=== PATIENT | female | born 1950 | race Caucasian/White ===

== ENCOUNTER 2020-11-19 09:53 | Outpatient (REF) | payer MEDICARE, OTHER, SELFPAY ==
--- NOTE | ~2020-11-19 | US_ITS ---
EXAMINATION: US RETROPERITONEAL LIMITED (RENAL ONLY) CLINICAL INFORMATION: Nephrolithiasis. COMPARISON: None TECHNIQUE: Real-time imaging of the kidneys. FINDINGS: RIGHT KIDNEY: 11.1 x 4.1 x 5.2 cm (SAG x AP x TRV). The kidney is normal in size, contour, and echogenicity. Renal cortical thickness is normal. There are scattered echogenic foci questionable for tiny stones. No focal parenchymal lesions. No hydronephrosis. LEFT KIDNEY: 11.6 x 5.2 x 5.1 cm (SAG x AP x TRV). The kidney is normal in size, contour, and echogenicity. Renal cortical thickness is normal. There are scattered echogenic foci questionable for tiny stones. Largest measures 3 mm in the midpole. No focal parenchymal lesions or hydronephrosis. US/US renal BI IMPRESSION: Question small bilateral renal stones, largest measuring 3 mm in the left kidney.
== END 2020-11-19 09:54 | disposition home or self-care (01) ==
LOC: HO.US 09:53
PROVIDERS: Visit Provider Urology
DX: N20.0 Calculus of kidney (principal)
CPT/HCPCS: 76775

== ENCOUNTER → 2020-12-18 11:14 | Outpatient (BNVA) | payer MEDICARE, OTHER, SELFPAY | PROVIDERS: PCP Pediatrics | DX: Z87.442 Personal history of urinary calculi (principal); Z98.890 Other specified postprocedural states | CPT/HCPCS: Q3014 ==

== ENCOUNTER 2022-02-10 15:10 | Outpatient (REF) | payer MEDICARE, SELFPAY ==
--- NOTE | ~2022-02-10 | US_ITS ---
EXAMINATION: US RETROPERITONEAL LIMITED (RENAL ONLY) CLINICAL INFORMATION: Calculus of kidney. COMPARISON: Ultrasound retroperitoneal limited (renal only) 11/19/2020. TECHNIQUE: Real-time imaging of the kidneys. FINDINGS: RIGHT KIDNEY: 10.8 x 4.3 x 4.2 cm (SAG x AP x TRV). The kidney is normal in size, contour, and echogenicity. Renal cortical thickness is normal. No hydronephrosis. There is a 1 cm simple cyst in the lateral lower pole for which no imaging follow-up is recommended. There are at least 2 sub-2 mm calculi in the lower and mid pole. LEFT KIDNEY: 11.6 x 4.8 x 4.2 cm (SAG x AP x TRV). The kidney is normal in size, contour, and echogenicity. Renal cortical thickness is normal. No calculi or focal parenchymal lesions. No hydronephrosis. US/US renal BI IMPRESSION: Nonobstructive right-sided renal calculi.
== END 2022-02-10 15:11 | disposition home or self-care (01) ==
LOC: HO.US 15:10
PROVIDERS: PCP Pediatrics
DX: N20.0 Calculus of kidney (principal)
CPT/HCPCS: 76775

== ENCOUNTER 2022-04-05 11:53 | Outpatient (REF) | payer MEDICARE, SELFPAY ==
[2022-04-05 13:06] LABS: Appearance Urine Cloudy; Color Urine Yellow; Glucose Urine UA Negative (Negative); Leukocyte Esterase Urine Trace (Negative); Nitrite Urine Negative (Negative); PH 6.5 (5.0-9.0); Specific Gravity - Urine 1.015 (1.005-1.025); UMIC TRIGGER UA YES; Urine Blood Negative (Negative); Urine Ketones Negative (Negative); Urine Protein Negative (Neg-Trace)
[2022-04-05 13:11] LABS: Bacteria Urine 4+ (None Seen); Hyaline Casts Urine 0-2 /LPF (0-2); RBC Urine 0-2 /HPF (0-2); Squamous Epithelial Cell Urine 0-2 /HPF (0-2)
== END 2022-04-05 11:54 | disposition home or self-care (01) ==
LOC: HO.LAB 11:53
PROVIDERS: PCP Pediatrics; Visit Provider Urology
DX: N20.0 Calculus of kidney (principal)
CPT/HCPCS: 81001; 87086; 87088; 87186

== ENCOUNTER 2023-02-22 11:28 | Outpatient (REF) | payer MEDICARE, SELFPAY ==
--- NOTE | ~2023-02-22 | US_ITS ---
EXAMINATION: US RETROPERITONEAL LIMITED (RENAL ONLY) CLINICAL INFORMATION: Calculus of kidney. COMPARISON: Renal ultrasound 02/10/2022 and 11/19/2020. TECHNIQUE: Real-time imaging of the kidneys. FINDINGS: RIGHT KIDNEY: 11.6 x 4.7 x 4.0 cm (SAG x AP x TRV). The kidney is normal in size, contour, and echogenicity. Renal cortical thickness is normal. No hydronephrosis. Benign-appearing renal cyst measuring 1 cm. No follow up imaging is recommended. 3 mm nonobstructing lower pole renal stone, previously 2 mm. LEFT KIDNEY: 10.8 x 4.5 x 4.1 cm (SAG x AP x TRV). The kidney is normal in size and echogenicity. Renal cortical thickness is normal. No calculi or focal parenchymal lesions. No hydronephrosis. US/US renal BI IMPRESSION: 3 mm nonobstructing right lower pole renal stone, previously 2 mm. No hydronephrosis.
== END 2023-02-22 11:29 | disposition home or self-care (01) ==
LOC: HO.US 11:28
PROVIDERS: PCP Pediatrics; Visit Provider Urology
DX: N20.0 Calculus of kidney (principal)
CPT/HCPCS: 76775

== ENCOUNTER 2023-03-06 12:48 | Outpatient (AMB) | payer MEDICARE, SELFPAY ==
--- NOTE | 2023-03-06 12:51 | A.OFFVIS_ITS ---
Intake Intake Visit Reasons: follow up (stones) /US Intake Note: Patient presents today for a follow-up on US Results, US Completed on 02/22/2023: Meds- None Allergies to Antibiotic- No Known Allergies Blood Thinner- None Signals Intelligence Superintendent Required: No Accompanied by: Self / Same As Patient Allergies No Known Allergies Allergy (Verified 03/06/23 12:58) Medication List - Last Reconciled 03/06/23 by Letty London MD multivitamin 1 tab PO DAILY omeprazole 20 mg PO DAILY timolol maleate 0.5% 1 drp ophthalmic (eye) QAM HPI HPI Comments History of Present Illness Details Ginger is a 72-year-old female who presents today to the office for a follow-up. 03/06/2023? She is followed today for renal calculi. She has seen Lisa CROSS Greaney last on 12/18/2020 for kidney stones. Patient states that she had multiple procedures for kidney stone treatment including shock-wave lithotripsy, and she states that last procedure was PCNL, and she was told they removed about 9 kidney stones at this time. Since then, she is doing well. I reviewed the renal US resultsrfrom 02/22/2023 revealed 3 mm nonobstructing right lower pole renal stone, previously 2 mm. No hydronephrosis. Evaluation today?UA? leukocytes: negative; blood: negative. Discussed to reduce sodium intake. Discussed to consume adequate amount of water. Discussed Low oxalate diet---green leafy vegetable, nuts, and tea in moderation as they are rich in oxalate. Plan: Discussed diet modifications to decrease risk for kidney stones formation, diet sheet provided. Encouraged to call the Urology office sooner with any questions or concerns. Follow-up in one year with renal US. [facility] Medical History Renal calculi Surgical History History of surgery Hx of hysterectomy Family History Father No problems noted. Mother No problems noted. Social History Alcohol intake: current Alcohol intake frequency: holidays/special occasions only Patient Tobacco Use Status: Never used Tobacco Review of Systems Const All systems reviewed & are unremarkable except as noted in HPI and below Reports no additional complaints Eyes Reports no additional complaints ENT Reports no additional complaints Card Denies dyspnea Resp Denies cough and Denies dyspnea GI Reports no additional complaints Reports no additional complaints Musc Reports no additional complaints Skin/Breast Denies rash and Denies unusual bruising Neuro Reports no additional complaints Psych Reports no additional complaints Endo Reports no additional complaints González/Lymph Reports no additional complaints Aller/Immun Reports no additional complaints Results AMB Urinalysis, Automated UA Leukoctes 0 Shama/uL Last Edit by JESSICA Bowling on 03/06/23 13:02 UA Nitrite Negative Last Edit by JESSICA Bowling on 03/06/23 13:02 UA Urobilinogen 0.2 mg/dL Last Edit by JESSICA Bowling on 03/06/23 13:0 2 UA Protein 0 mg/dL Last Edit by JESSICA Bowling on 03/06/23 13:02 UA pH 6.0 Last Edit by JESSICA Bowling on 03/06/23 13:02 UA Blood 0 Gino/uL Last Edit by JESSICA Bowling on 03/06/23 13:02 UA Specific [place] 1.005 Last Edit by JESSICA Bowling on 03/06/23 13: 02 UA Ketone Negative Last Edit by JESSICA Bowling on 03/06/23 13:02 UA Bilirubin 0 mg/dL Last Edit by JESSICA Bowling on 03/06/23 13:02 UA Glucose 0 mg/dL Last Edit by JESSICA Bowling on 03/06/23 13:02 Results Reviewed Results Reviewed: Laboratory Last Values Urine pH (Auto) 6.0 03/06/23 13:00 Specific [place] (Auto) 1.005 03/06/23 13:00 Urine Protein (Auto) 0 mg/dL 03/06/23 13:00 Glucose (UA)(Auto) 0 mg/dL 03/06/23 13:00 Urine Ketones (Auto) Negative 03/06/23 13:00 Urine Blood (Auto) 0 Gino/uL 03/06/23 13:00 Urine Nitrite (Auto) Negative 03/06/23 13:00 Urine Bilirubin (Auto) 0 mg/dL 03/06/23 13:00 Urine Urobilinogen (Auto) 0.2 mg/dL 03/06/23 13:00 Leukocyte Esterase (Auto) 0 Shama/uL 03/06/23 13:00 Date of Service: 02/22/23 EXAMINATION:? US RETROPERITONEAL LIMITED (RENAL ONLY) CLINICAL INFORMATION: Calculus of kidney. COMPARISON:? Renal ultrasound 02/10/2022 and 11/19/2020. FINDINGS: RIGHT KIDNEY: 11.6 x 4.7 x 4.0 cm (SAG x AP x TRV). The kidney is normal in size, contour, and echogenicity. Renal cortical thickness is normal. No hydronephrosis. Benign-appearing renal cyst measuring 1 cm. No follow up imaging is recommended. 3 mm nonobstructing lower pole renal stone, previously 2 mm. LEFT KIDNEY: 10.8 x 4.5 x 4.1 cm (SAG x AP x TRV). The kidney is normal in size and echogenicity. Renal cortical thickness is normal. No calculi or focal parenchymal lesions. No hydronephrosis. IMPRESSION:? 3 mm nonobstructing right lower pole renal stone, previously 2 mm. No hydronephrosis. Assessment & Plan Assessment & Plan (1) Renal calculi: Code(s): N20.0 - Calculus of kidney Plan Discussed diet modifications to decrease risk for kidney stones formation, diet sheet provided. Encouraged to call the Urology office sooner with any questions or concerns. Follow-up in one year with renal US. Orders: Orders AMB Urinalysis Automated 03/06/23 Z13.9 - Encounter for screening, unspecified US renal BI 10 Months N20.0 - Calculus of kidney Patient Instructions: The patient had an opportunity to ask questions regarding treatment plan. All questions were answered. Imaging, Laboratory studies and physical exam results were discussed and reviewed in detail. No major barriers to understanding were identified. The patient expressed understanding and agreement with the above treatment plan.? ? ? The patient is aware they should contact our office by phone for worsening of their current condition or the appearance of new symptoms. Compliance is encouraged with any medications and followup testing that is ordered.? ? ? It is a privilege to be allowed the opportunity to participate in the urologic care of your patient. If you have any questions or concerns regarding treatment for the above conditions please do not hesitate to contact me. The office telephone contact is [phone].? ? ? This note is constructed in part using voice recognition software. While every effort has been made to ensure accuracy dedicated truck driver errors may have been included.? ? ? Yours sincerely,? ? ? Letty London MD? Coding Level of Care Code Est Pt Level 3 (00495) Diagnoses Renal calculi N20.0
== END 2023-03-06 13:26 | disposition home or self-care (01) ==
PROVIDERS: PCP Pediatrics; Visit Provider Urology
DX: N20.0 Calculus of kidney (principal)
CPT/HCPCS: 99213

== ENCOUNTER → 2023-03-06 12:48 | Outpatient (BNVA) | payer MEDICARE, SELFPAY | PROVIDERS: Visit Provider Urology | DX: N20.0 Calculus of kidney (principal) | CPT/HCPCS: 81003; 99212 ==

== ENCOUNTER 2024-01-01 11:19 | Outpatient (REF) | payer MEDICARE, SELFPAY ==
--- NOTE | ~2024-01-01 | US_ITS ---
EXAMINATION: US RETROPERITONEAL LIMITED (RENAL ONLY) CLINICAL INFORMATION: Calculus of kidney. COMPARISON: Renal ultrasound 02/22/2023 and 02/10/2022. TECHNIQUE: Real-time imaging of the kidneys. Limited visualization due to bowel gas. FINDINGS: RIGHT KIDNEY: 11.0 x 4.1 x 4.8 cm (SAG x AP x TRV). 0.4 cm lower pole cortical calculus. No hydronephrosis. Lobulated right renal contour. 1.2 cm lower pole cyst with benign features. There is no indication for follow-up imaging. Limited visualization. LEFT KIDNEY: 11.1 x 4.7 x 4.3 cm (SAG x AP x TRV). Left renal caliectasis. No obstructing left renal calculi. Lobulated renal contour. Limited visualization. US/US renal BI IMPRESSION: 1. A 0.4 cm right renal lower pole nonobstructing calculus. No right hydronephrosis. 2. Left renal caliectasis. No left renal calculi appreciated. 3. Lobulated bilateral renal contours difficult to evaluate due to limited visualization.
== END 2024-01-01 11:20 | disposition home or self-care (01) ==
LOC: HO.US 11:19
PROVIDERS: PCP Pediatrics; Visit Provider Urology
DX: N20.0 Calculus of kidney (principal)
CPT/HCPCS: 76775

== ENCOUNTER 2024-04-11 11:31 | Outpatient (AMB) | payer MEDICARE, SELFPAY ==
--- NOTE | 2024-04-10 19:06 | A.OFFVIS_ITS ---
Intake Visit Reasons: 1y/US Intake Note: Patient is present for 1y/US Urology Medication:NONE Antibiotic Allergy:SULFA Blood Thinner:NONE Manager Loss Prevention Required: No Allergies Sulfa (Sulfonamide Antibiotics) Allergy (Mild, Verified 04/11/24 12:22) Unknown Medication List - Last Reconciled 04/11/24 by Letty London MD multivitamin 1 tab PO DAILY nitrofurantoin monohyd/m-cryst 100 mg (Macrobid) 100 mg PO BID omeprazole 20 mg PO DAILY timolol maleate 0.5% 1 drp ophthalmic (eye) QAM HPI Comments Details: 04/11/24--one year fu kidney stones. Reviewed fu renal US --01/01/24- right kidney stone is stable, 4 mm, was measured at 3 mm on prior renal ultrasound. The patient states she is asymptomatic, denies hematuria or renal colic. She does complain that the urine has a strong odor in his called in she thinks she has a UTI. Urinalysis-in +leukocytes. I will send urine for culture and will empirically prescribed Macrobid 100 mg twice a day for 5 days. Review of Chart: 03/06/2023?She is followed today for renal calculi. She has seen UTILITIES AND MAINTENANCE SUPERVISORLisa Greaney last on 12/18/2020 for kidney stones. Patient states that she had multiple procedures for kidney stone treatment including shock-wave lithotripsy, and she states that last procedure was PCNL, and she was told they removed about 9 kidney stones at this time. Since then, she is doing well. I reviewed the renal US resultsrfrom 02/22/2023 revealed 3 mm nonobstructing right lower pole renal stone, previously 2 mm. No hydronephrosis. Discussed to reduce sodium intake. Discussed to consume adequate amount of water. Discussed Low oxalate diet---green leafy vegetable, nuts, and tea in moderation as they are rich in oxalate. [facility] Medical History Renal calculi Surgical History History of surgery Hx of hysterectomy Family History Father No problems noted. Mother No problems noted. Social History Alcohol intake: current Alcohol intake frequency: holidays/special occasions only Patient Tobacco Use Status: Never used Tobacco Review of Systems Const All systems reviewed & are unremarkable except as noted in HPI and below Reports no additional complaints Eyes Reports no additional complaints ENT Reports no additional complaints Card Reports no additional complaints Resp Reports no additional complaints GI Reports no additional complaints Reports as per HPI Musc Reports no additional complaints Skin/Breast Reports system reviewed and no additional complaints, except as documented Neuro Reports no additional complaints Psych Reports no additional complaints Endo Reports no additional complaints González/Lymph Reports no additional complaints Aller/Immun Reports no additional complaints Results Reviewed Results Reviewed: Date of Service: 01/01/24 US RETROPERITONEAL LIMITED (RENAL ONLY) CLINICAL INFORMATION: Calculus of kidney. COMPARISON: Renal ultrasound 02/22/2023 and 02/10/2022. TECHNIQUE: Real-time imaging of the kidneys. Limited visualization due to bowel gas. FINDINGS: RIGHT KIDNEY: 11.0 x 4.1 x 4.8 cm (SAG x AP x TRV). 0.4 cm lower pole cortical calculus. No hydronephrosis. Lobulated right renal contour. 1.2 cm lower pole cyst with benign features. There is no indication for follow-up imaging. Limited visualization. LEFT KIDNEY: 11.1 x 4.7 x 4.3 cm (SAG x AP x TRV). Left renal caliectasis. No obstructing left renal calculi. Lobulated renal contour. Limited visualization. IMPRESSION: 1. A 0.4 cm right renal lower pole nonobstructing calculus. No right hydronephrosis. 2. Left renal caliectasis. No left renal calculi appreciated. 3. Lobulated bilateral renal contours difficult to evaluate due to limited visualization. Date of Service: 02/22/23 EXAMINATION:? US RETROPERITONEAL LIMITED (RENAL ONLY) CLINICAL INFORMATION: Calculus of kidney. COMPARISON:? Renal ultrasound 02/10/2022 and 11/19/2020. FINDINGS: RIGHT KIDNEY: 11.6 x 4.7 x 4.0 cm (SAG x AP x TRV). The kidney is normal in size, contour, and echogenicity. Renal cortical thickness is normal. No hydronephrosis. Benign-appearing renal cyst measuring 1 cm. No follow up imaging is recommended. 3 mm nonobstructing lower pole renal stone, previously 2 mm. LEFT KIDNEY: 10.8 x 4.5 x 4.1 cm (SAG x AP x TRV). The kidney is normal in size and echogenicity. Renal cortical thickness is normal. No calculi or focal parenchymal lesions. No hydronephrosis. IMPRESSION:? 3 mm nonobstructing right lower pole renal stone, previously 2 mm. No hydronephrosis. Assessment & Plan Assessment & Plan (1) Renal calculi: Code(s): N20.0 - Calculus of kidney Category: Medical (2) UTI symptoms: Code(s): R39.9 - Unspecified symptoms and signs involving the genitourinary system Category: Medical Plan Discussed diet modifications to decrease risk for kidney stones formation, diet sheet provided. Follow-up in one year with renal US. Macrobid 100 mg twice a day for 5 days urine culture pending. Encouraged to call the Urology office sooner with any questions or concerns. Orders: Orders US renal BI 10 Months N20.0 - Calculus of kidney Medications: New nitrofurantoin monohyd/m-cryst 100 mg (Macrobid) must administer with a meal/food 100 mg PO BID 10 caps 0RF Patient Instructions: The patient had an opportunity to ask questions regarding treatment plan. The patient expressed understanding and agreement with the above treatment plan. The patient is aware they should contact our office by phone for worsening of their current condition or the appearance of new symptoms. Compliance is encouraged with any medications and followup testing that is ordered. It is a privilege to be allowed the opportunity to participate in the urologic care of your patient. If you have any questions or concerns regarding treatment for the above conditions please do not hesitate to contact me. The office telephone contact is [phone]. This note is constructed in part using voice recognition software. While every effort has been made to ensure accuracy hobbing press operator errors may have been included. Yours sincerely, Letty London MD Coding Level of Care Code Est Pt Level 4 (72551) Diagnoses Renal calculi N20.0 UTI symptoms R39.9
== END 2024-04-11 12:33 | disposition home or self-care (01) ==
LOC: HO.HUSH 11:32
PROVIDERS: PCP Pediatrics; Visit Provider Urology
DX: N20.0 Calculus of kidney (principal); R39.9 Unspecified symptoms and signs involving the genitourinary system; Z13.9 Encounter for screening, unspecified
CPT/HCPCS: 99214

== ENCOUNTER 2024-04-11 11:31 | Outpatient (REF) | payer MEDICARE, SELFPAY | END 2024-04-11 11:32 | disposition home or self-care (01) | LOC: HO.LAB 11:31 | PROVIDERS: PCP Pediatrics; Visit Provider Urology | DX: N39.0 Urinary tract infection, site not specified (principal); N20.0 Calculus of kidney; R39.9 Unspecified symptoms and signs involving the genitourinary system; B96.20 Unspecified Escherichia coli [E. coli] as the cause of diseases classified elsewhere | CPT/HCPCS: 81003; 87086; 87088; 87186; 99212 ==

== ENCOUNTER 2025-02-10 13:26 | Outpatient (REF) | payer MEDICARE, SELFPAY ==
--- NOTE | ~2025-02-10 | US_ITS ---
EXAMINATION: US KIDNEY BILATERAL HISTORY: N20.0 - Calculus of kidney TECHNIQUE: Real-time grayscale ultrasound imaging of the kidneys was performed and images were reviewed. COMPARISON: Comparison is made with the prior examination dated 01/01/2024. FINDINGS: Right kidney: The right kidney measures 11.0 x 4.2 x 5.0 cm. Renal parenchymal echotexture and thickness are normal. There is a cyst in the interpolar region measuring 8 x 7 x 8 mm. There is a 5 x 3 x 4 mm nonobstructing calculus at the lower pole. There is no hydronephrosis. Left Kidney: The left kidney measures 11.8 x 5.0 x 3.6 cm. Renal parenchymal echotexture and thickness are normal. There are no masses. There is no hydronephrosis or renal calculi. US/US renal BI IMPRESSION: 5 mm nonobstructing calculus at the lower pole of the right kidney. No hydronephrosis. Electronically signed by: Steve Allen MD 02/10/2025 02:17 PM EDT
--- OUTSIDE RECORDS SUMMARY | 2025-02-10 15:44 | XMS_ITS | Clinical Summary ---
Author Organization [facility] Address [address] [place] [phone] Phone Care Team Providers Care Supervisor Laundry Name Role Phone Amador Roberts MD Primary Care Provider + Allergies No known active allergies Medications dorzolamide-oliver olol (COSOPT) 22.3-6.8 mg/mL ophthalmic solution PLACE 1 DROP INTO BOTH EYES TWICE A DAY 3 08/14/2017 Active ibuprofen (ADVIL,MOTRIN) 200 MG tablet Take 200 mg by mouth every 6 (six) hours as needed for pain (specific location in comments). Active omeprazole (PRILOSEC) 10 MG capsule Take 10 mg by mouth daily. Active Active Problems Problem Noted Date Diagnosed Date Status post cataract extract ion and insertion of intraocular lens of left eye 01/03/2018 Age-related nuclear cataract of left eye 018 Family History Medical History Relation Comments Glaucoma Father Breast cancer Mother Macular degeneration Mother Breast cancer Sister Diabetes Neg Hx Retinal detachment Neg Hx Relation Status Comments Father Mother Sister Social History Tobacco Use Types Packs/Day Years Used Date Smoking Tobacco: Never Smokeless Tobacco: Never Alcohol Use Standard Drinks/Week Comments Yes 0 (1 standard drink = 0.6 oz pur e alcohol) Education Answer Date Recorded Are you interested in more education? Not on jo e 09/30/2022 Are you concerned about learning? Not on file 09/30/2022 No 09/30/2022 No 09/30/2022 Digital Access Answer Date Recorded No 10/29/2022 No 10/29/2022 No 10/29/2022 Reliable internet access at home? Not on file 10/29/2022 Device with a working camera? Not on file Comments Unknown Sex and Gender Information Value Date Recorded Sex Assigned at Not on file Legal Sex Female 4:13 PM EDT Gender Identity Not on file Sexual Orientation Not on file Last Filed Vital Signs Vital Sign Reading Time Taken Comments Blood Pressure 126/59 06/19/2018 1:37 PM EST Pulse 78 06/19/2018 1:37 PM EST Temperature 36.5 C (97.7 F) 06/19/2018 12:37 PM EST Respiratory Rate 11 06/19/2018 1:37 PM EST Oxygen Saturation 100% 06/19/2018 1:37 PM EST Inhaled Oxygen Concentration - - Weight - - Height - - Body Mass Index - - Plan of Treatment Health Maintenance Due Date Last Done Comments LIPID PANEL 1949 DEPRESSION SCREENING 1961 HEPATITIS C SCREENING 1967 COLOGUARD 1994 COLONOSCOPY 1994 COLORECTAL CANCER SCREENING 1994 FIT TEST 1994 FOBT 1994 SIGMOIDOSCOPY 1994 VIRTUAL COLONOSCOPY 1994 ZOSTER VACCINES (1 of 2) 1999 OSTEOPOROSIS SCREENING INITIAL (ONE-TIME) 2014 RSV VACCINE (1 - 1-dose 75+ series) 2024 INFLUENZA VACCINE (#1) 2025 0, 02/07/2019, 02/14/2018, Additional history exists COVID-19 VACCINE (2 - 2024- season) 2025 08/05/2020 Adult Td,Tdap Booster 12/13/2027 12/12/2017, 008 PNEUMOCOCCAL VACCINES (50+ years) Completed 02/14/2018, 02/06/2017 SMOKING STATUS SCREENING (Once After 26 Yrs) Completed 07/25/2018 HEPATITIS A VACCINES Aged Out No long er eligible based on patient's age to complete this topic HIB VACCINES Aged Out No longer eligi ble based on patient's age to complete this topic MENINGOCOCCAL VACCINES (ACWY) Aged Out No longer eligible based on patient's age to complete this topic MENINGOCOCCAL VACCINES (B) Aged Out N o longer eligible based on patient's age to complete this topic Medical Devices Implanted Type Area Jail Manager Device Identifier Shelf Expiration Date Model / Serial / Lot Iol Softport Ao [id number] 21.5d-01/02/2018 Implanted:01/03/20 18 (Quantity not on file) MEDLINE 05/04/2022 Description:OD Lens Intraocular Sofport [id number] 23.0d-06/19/2018 Implanted:06/19/19 19 (Quantity not on file) BAUSCH 12/02/2022 [id number] 23.0D / / Description:OS Insurance MEDICARE PART A & [place] [address] [place] [address] INDEMNITY MEDICARE PART A & B [facility] INDEMNITY Member Subscriber Plan / Payer (Ef fective 2018-Present) Name:Ginger Harris Relation to Subscriber:Self Name:Ginger Harris Payer ID:[id number] (NAIC) Type:Indemnity Address: [facility] [id number] [place] [id number] Care Teams Supervisor Laundry Relationship Specialty Start Date End Date Amador Roberts MD [address] [place] [phone] PCP - General Internal Medicine 08/21/17 Additional Source Comments The information contained in this document represents components of the legal health record. It is not the complete legal health record.[facility]
--- OUTSIDE RECORDS SUMMARY | 2025-02-10 15:44 | XMS_ITS | Clinical Summary ---
Author Organization [facility] Address [address] [place] [address] Phone Care Team Providers Care Hasher Operator Name Role Phone Magali Olson MD Primary Care Provider [phone] Allergies Active Allergy Reactions Criticality Noted Date Comments Sulfa (Sulfonamide Antibiotics) 12/2021 Diarrhea, abd pain Medications erythromycin 5 mg/gram (0.5 %) ophthalmic ointment APPLY TO BOTH EYES TWICE DAILY OR MORE OFTEN NEEDED 4 Active acetaminophen (TYLENOL) 325 mg tablet Take 2 tablets (650 mg total) by mouth as needed. Active ibuprofen (ADVIL,MOTRIN) 200 mg tablet Take 1 tablet (200 mg total) by mouth as needed. Active levobunoloL (BETAGAN) 0.5 % ophthalmic solution Administer 1 drop into both eyes 1 (one) time each day. Active OMEPRAZOLE ORAL Take 20 mg by mouth 1 (one) time each day. Active hqjzpebl-jll-w olic acid-lutein (Adult Multivitamin, w-lutein,) 200-137.5 mcg tablet,chewabl e Chew 2 each 1 (one) time each day. Gummy chews Active atorvastatin (Lipitor) 10 mg tablet Take 1 tablet (10 mg total) by mouth at bedtime. 90 tablet 3 5 Active fluticasone propionate (FLONASE) 50 mcg/actuation nasal spray 2 sprays each nostril once a day for 10 days. 2 01/22/20 25 Discontinu ed(Discont inued by another clinician) Active Problems Problem Noted Date Diagnosed Date Hypertension 10/09/2023 Overview (06/20/2024): Last Assessment & Plan: Patient's blood pressure is under excellent control with a reading today of 130/76. She is not on any antihypertensives. Assessment & Plan (01/31/2025 4:43 PM EDT): Blood pressure is reasonable with a reading today of 130/78. No changes to her present medical therapies. Malodorous urine 10/09/2023 Overview (06/20/2024): Last Assessment & Plan: Patient is complaining of malodorous urine for the past week. She denies any dysuria or hematuria. She denies any back pain, fevers or confusion. Negative costovertebral angle tenderness. have taken liberty of sending her for a UA and culture and we will forward results to primary care provider. Encouraged to increase hydration. Osteopenia 06/30/2022 Overview (06/20/2024): 06/2022 - lumbar spine T-score is -1.7. Left Hip T-score is -1.9. Mitral valve prolapse 07/12/2021 Overview (06/20/2024): Last Assessment & Plan: Recent echocardiogram showing small amount of prolapse of the posterior leaflet of the mitral valve. No stenosis however there was trace regurgitation. Patient denies any clinical symptoms of heart failure. LVEF was normal at 55 to 60%. She is euvolemic on physical examination. We will plan to continue monitoring this. No changes to her present medical therapies. Assessment & Plan (01/31/2025 4:43 PM EDT): Patient has history of a small amount of prolapse of the posterior leaflet of the mitral valve. Last echocardiogram 2023. Denies any clinical symptoms of heart failure and appears euvolemic. We will continue to monitor this. Dyspnea 02/25/2021 Overview (06/20/2024): Last Assessment & Plan: Patient underwent evaluation with a stress echocardiogram which did not reveal any evidence for infarct or ischemia. Shortness of breath has resolved. She attributes the shortness of breath to deconditioning. She does not exercise but she is trying to incorporate a walking program. Incontinence of urine 06/29/2009 Sprain of shoulder and upper arm 08/06/2007 Glaucoma suspect 07/14/2007 Nephrolithiasis 07/14/2007 Overview (06/20/2024): [facility] Encounters Date Type Department Care Team Description 02/04/2025 Telephone [facility] Cardiology [facility] [address] [place] [address] Ave Mejia NP 01/21/2025 10:40 AM EDT Office Visit [facility] [address] [place] [address] Ave Mejia, TAY Mitral valve prolapse (Primary Dx); Primary hypertension; Peripheral vascular insufficiency (CMS/LTAC, [facility] V24); Edema, unspecified type from Last 3 Months Immunizations Name Administration Dates Next Due Influenza trivalent, 0.5mL (Fluad) 65yo and olde r 02/07/2019,02/06/2017 Influenza trivalent, 0.5mL, preservative free (Fluarix; FluLaval; Fluzone) ages 6mo and older (Afluria) 3 years and older 02/12/2020 Influenza trivalent, with pr eservative (Fluzone; Afluria) 6mo and older 02/14/2018,04/04/2014 Pneumococcal conjugate 13 va lent (Prevnar 13, PCV13) 2mo and older 02/06/2017 Pneumococcal polysaccharide 23 valent (Pneumovax 23) 2yo and older 02/14/2018 Td Tetanus diptheria (Tdvax) 7yo and older 12/12 Tdap Tetanus diptheria acell ular pertussis (Boostrix; Adacel) 7yo and older 07/12/2007 Surgical History Surgery Date Site/Laterality Comments OTHER SURGICAL HISTORY PROCEDURE: HI NEPHROLITHOTOMY SECONDARY SURG OPERJ CALCULUS; COMMENT: x5 treatments HYSTERECTOMY age 44 PROCEDURE: HISTORICAL HYSTERECTOMY; COMMENT: fibroids, TAHBSO VAGINAL DELIVERY PROCEDURE: HISTORICAL VAGINAL DELIVERY; COMMENT: 2 COLONOSCOPY 06/30/10 [facility] PROCEDURE: HISTORICAL COLONOSCOPY; COMMENT: tics; repeat in five years Medical History Medical History Date Comments Unspecified glaucoma(365.9) 05/17/2006 DX:U nspecified glaucoma(365.9) Nephritis and nephropathy, n ot specified as acute or chronic, with unspecified pathological lesion in kidney 05/17/2006 DX:Nephritis and nephropathy , not specified as acute or chronic, with unspecified pathological lesion in kidney Generalized osteoarthrosis, unspecified site DX:Generalized osteoarthrosi s, unspecified site Hypertension 10/09/2023 Family History Medical History Relation Name Comments Other cancer Aunt 1 maternal aunt d ied age 81; ? primary Lung cancer Aunt 2 maternal aunt Diabetes Brother 1 Other: divuticulitis Brother 2 Alcohol/Drug Father cirrhosis- at age 59 Glaucoma Father Other: heart failure Maternal Grandfather at age 63 Heart failure Maternal Grandmother a t age 85 Breast cancer Other niece niece; DCIS Heart failure Paternal Grandfather Other: Other Paternal Grandmother in her 80s; ? cause Other cancer Sister 1 pancreatic Colon cancer Uncle 1 at age 50; maternal; also liver,lung Other cancer Uncle 2 ? primary; fajardo rnal uncle Relation Name Status Comments Aunt 1 Aunt 2 Brother 1 Brother 2 Brother 3 Alive x1 Daughter Alive Father Maternal Grandfather Maternal Grandmother Other niece Alive Paternal Grandfather Paternal Grandmother Sister 1 Sister 2 Alive x2 Sister 3 Son Alive Uncle 1 Uncle 2 Social History Tobacco Use Types Packs/Day Years Used Date Smoking Tobacco: Never Smokeless Tobacco: Never Alcohol Use Standard Drinks/Week Comments Yes 0 (1 standard drink = 0.6 oz pur e alcohol) 1 drink a week Comments Unknown Sex and Gender Information Value Date Recorded Sex Assigned at Not on file Legal Sex Female 5:18 PM EST Gender Identity Not on file Sexual Orientation Not on file Obstetrics History Last Filed Vital Signs Vital Sign Reading Time Taken Comments Blood Pressure 130/78 01/21/2025 10:51 AM EDT Pulse 73 01/21/2025 10:51 AM EDT Temperature - - Respiratory Rate - - Oxygen Saturation 98% 01/21/2025 10:51 AM EDT Inhaled Oxygen Concentration - - Weight 60 kg (132 lb 4.8 oz) 01/21/2025 10:51 AM EDT Height 154.9 cm (5' 1 ) 01/21/2025 10:51 AM EDT Body Mass Index 25 01/21/2025 10:51 AM EDT Plan of Treatment Upcoming Encounters Date Type Department Care Team (Late st Contact Info) Description 04/09/2025 12:00 PM EST Ancillary Procedure [facility] [address] [place] [address] Health Maintenance Due Date Last Done Comments Colorectal Cancer Screening: Colonoscopy 05/07/2022 07/02/2010 Falls Risk Assessment 05/07/2022 Social Influencers of Health Screening 05/07/2022 Medicare Annual Wellness Visit 04/18/2023 04/18/2022 RSV Immunization Adult Patients (1 - 1-dose 75+ series) 2024 Depression Screening 06/05/2024 COVID-19 Vaccine ( season) 2025 03/22/2024, 05/08/2023, 05/10/2022, Additional history exists Influenza Vaccine (#1) 2025 , 02/17/2022, 02/26/2021, Additional history exists Hypertension/CHF/CAD Annual BMP Blood Test 01/22/2026 01/22/2025, 04/18/2022 DTaP,Tdap,and Td Vaccines (3 - Td or Tdap) 12/13/2027 12/12/2017, 07/12/2007 Cholesterol Screening (Lipid Panel) 01/22/2030 01/22/2025, 04/18/2022 Osteoporosis Screening (Bone Density Screening) 06/30/2032 06/30/2022 Pneumococcal Vaccine: 50+ Years Completed 02/14/2018, 02/06/2017 Hepatitis C Screening Completed 04/18/2022 Breast Cancer Screening Discontinued 01/04/20, 12/31/2021, 12/29/2020, Additional history exists Zoster Vaccines Completed 07/16/2023, 05/15/2023 HIB Vaccines Aged Out No longer eligi ble based on patient's age to complete this topic HPV Vaccines Aged Out No longer eligi ble based on patient's age to complete this topic Hepatitis A Vaccines Aged Out No long er eligible based on patient's age to complete this topic Hepatitis B Vaccines Aged Out No long er eligible based on patient's age to complete this topic IPV Vaccines Aged Out No longer eligi ble based on patient's age to complete this topic MMR Vaccines Aged Out No longer eligi ble based on patient's age to complete this topic Meningococcal ACWY Vaccine Aged Out N o longer eligible based on patient's age to complete this topic Meningococcal B Vaccine Aged Out No l onger eligible based on patient's age to complete this topic RSV Immunization Patients Under 20 months Aged Out No longer eligible based on patient's age to complete this topic Varicella Vaccines Aged Out No longer eligible based on patient's age to complete this topic Procedures Procedure Name Priority Date/Time Associated Diagnosis Comments CBC WITH AUTO DIFFERENTIAL Routine 01/22/2025 11:50 AM EDT Mitral valve prolapse Primary hypertension Peripheral vascular insufficiency (CMS/HCC V24) Edema, unspecified type COMPREHENSIVE METABOLIC PANEL Routine 01/22/2025 11:50 AM EDT Mitral valve prolapse Primary hypertension Peripheral vascular insufficiency (CMS/HCC V24) Edema, unspecified type MAGNESIUM Routine 01/22/2025 11:50 AM EDT Mitral valve prolapse Primary hypertension Peripheral vascular insufficiency (CMS/HCC V24) Edema, unspecified type CBC AND DIFFERENTIAL Routine 01/22/2025 11:50 AM EDT Mitral valve prolapse Primary hypertension Peripheral vascular insufficiency (CMS/HCC V24) Edema, unspecified type LIPID PANEL WITH REFLEX TO DIRECT LDL Routine 01/22/2025 11:50 AM EDT Mitral valve prolapse Primary hypertension Peripheral vascular insufficiency (CMS/HCC V24) Edema, unspecified type ECG 12-LEAD Routine 01/21/2025 11:01 AM EDT Mitral valve prolapse Primary hypertension LEOBARDO SCREENING DIGITAL Routine 01/03/2023 10:44 AM EDT Encounter for screening mammogram for malignant neoplasm of breast DXA BONE DENSITY STUDY 1+ SITS AXIAL SKEL Routine 06/30/2022 1:15 PM EST Encounter for screening for osteoporosis HEPATITIS C SCREENING Routine 04/18/2022 COLONOSCOPY Routine 07/02/2010 from Last 3 Months or Most Recently Relevant to Health Maintenance Results * (ABNORMAL) Lipid panel with reflex to direct LDL (01/22/2025 11:50 AM EDT) Cholesterol 223(H) 0 - 200 mg/dL LAB CHEMISTRY METHOD 01/22/2025 4:42 PM EDT [facility] Triglycerides 160(H) 0 - 150 mg/dL LAB CHEMISTRY METHOD 01/22/2025 4:42 PM EDT [facility] HDL 48 >=40 mg/dL LAB CHEMISTRY METHOD 01/22/2025 4:42 PM EDT [facility] LDL Calculated 143(H) 0 - 100 mg/dL LAB CHEMISTRY METHOD 01/22/2025 4:42 PM EDT [facility] Comment:Estimated LDL Calcul ated using equation: Total cholesterol - HDL cholesterol - (Triglycerides/5) VLDL Cholesterol Tunde 32 mg/dL LAB CHEMISTRY METHOD 01/22/2025 4:42 PM EDT [facility] Non HDL Chol. (LDL+VLDL) 175(H) <145 mg/dL LAB CHEMISTRY METHOD 01/22/2025 4:42 PM EDT [facility] Chol/HDL Ratio 4.6(H) 0.0 - 4.4 LAB CHEMISTRY METHOD 01/22/2025 4:42 PM EDT [facility] Blood Venous blood specimen / Unknown Venipuncture / Unknown 01/22/2025 11:50 AM EDT 01/22/2025 11:[address] Mejia LINE WORKER LAB BLOOD ORDERABLES Final R esult [facility] [address] [place] [address], * CBC auto differential (01/22/2025 11:50 AM EDT) [facility] WBC 6.5 4.8 - 10.8 K/mcL LAB HEMETOLOGY METHOD 01/22/2025 2:06 PM EDT [facility] RBC 4.70 3.80 - 4.80 M/mcL LAB HEMETOLOGY METHOD 01/22/2025 2:06 PM EDT [facility] Hemoglobin 13.9 11.5 - 16.0 g/dL LAB HEMETOLOGY METHOD 01/22/2025 2:06 PM [facility] Hematocrit 43.2 35.0 - 47.0 % LAB HEMETOLOGY METHOD 01/22/2025 2:06 PM [facility] MCV 91.5 79.0 - 98.0 FL LAB HEMETOLOGY METHOD 01/22/2025 2:06 PM [facility] MCH 29.4 27.0 - 32.0 pcg LAB HEMETOLOGY METHOD 01/22/2025 2:06 PM [facility] MCHC 32.2 32.0 - 37.0 g/dL LAB HEMETOLOGY METHOD 01/22/2025 2:06 PM [facility] RDW 12.4 11.0 - 15.0 % LAB HEMETOLOGY METHOD 01/22/2025 2:06 PM [facility] Platelets 271 130 - 400 K/mcL LAB HEMETOLOGY METHOD 01/22/2025 2:06 PM [facility] MPV 10.2 7.0 - 11.0 FL LAB HEMETOLOGY METHOD 01/22/2025 2:06 PM [facility] NRBC 0.0 <1.0 % LAB HEMETOLOGY METHOD 01/22/2025 2:06 PM [facility] NRBC Absolute 0.00 <0.10 K/mcL LAB HEMETOLOGY METHOD 01/22/2025 2:06 PM [facility] Neutrophils Relative 48.2 % LAB HEMETOLOGY METHOD 01/22/2025 2:06 PM [facility] Lymphocytes Relative 40.5 % LAB HEMETOLOGY METHOD 01/22/2025 2:06 PM [facility] Monocytes Relative 8.4 % LAB HEMETOLOGY METHOD 01/22/2025 2:06 PM [facility] Eosinophils Relative 2.1 % LAB HEMETOLOGY METHOD 01/22/2025 2:06 PM [facility] Basophils Relative 0.5 % LAB HEMETOLOGY METHOD 01/22/2025 2:06 PM [facility] Immature Granulocytes Relative 0.3 % LAB HEMETOLOGY METHOD 01/22/2025 2:06 PM [facility] Neutrophils Absolute 3.15 1.50 - 7.00 K/mcL LAB HEMETOLOGY METHOD 01/22/2025 2:06 PM [facility] Lymphocytes Absolute 2.65 1.00 - 5.00 K/mcL LAB HEMETOLOGY METHOD 01/22/2025 2:06 PM [facility] Monocytes Absolute 0.55 0.20 - 1.00 K/mcL LAB HEMETOLOGY METHOD 01/22/2025 2:06 PM [facility] Eosinophils Absolute 0.14 0.00 - 0.50 K/mcL LAB HEMETOLOGY METHOD 01/22/2025 2:06 PM [facility] Basophils Absolute 0.03 0.00 - 0.20 K/mcL LAB HEMETOLOGY METHOD 01/22/2025 2:06 PM [facility] Immature Granulocytes Absolute 0.02 0.00 - 0.03 K/mcL LAB HEMETOLOGY METHOD 01/22/2025 2:06 PM EDT [facility] Blood Venous blood specimen / Unknown Venipuncture / Unknown 01/22/2025 11:50 AM EDT 01/22/2025 11:[address] Bartolucci LINE WORKER LAB BLOOD ORDERABLES Final R esult Performing Organization Address City/[facility]/ZIP Co de Phone Number [facility] [address] [place] [address], [place] [phone] * Magnesium (01/22/2025 11:50 AM EDT) [facility] Magnesium 2.2 1.9 - 2.6 mg/dL LAB CHEMISTRY METHOD 01/22/2025 4:41 PM EDT [facility] Blood Venous blood specimen / Unknown Venipuncture / Unknown 01/22/2025 11:50 AM EDT 01/22/2025 11:[address] Bartolucci LINE WORKER LAB BLOOD ORDERABLES Final R esult Performing Organization Address City/[facility]/ZIP Co de Phone Number [facility] [address] [place] [address], [place] [phone] * (ABNORMAL) Comprehensive metabolic panel (01/22/2025 11:50 AM EDT) [facility] Sodium 140 133 - 145 mmol/L LAB CHEMISTRY METHOD 01/22/2025 4:42 PM EDT [facility] Potassium 4.6 3.5 - 5.5 mmol/L LAB CHEMISTRY METHOD 01/22/2025 4:42 PM EDT [facility] Chloride 105 96 - 110 mmol/L LAB CHEMISTRY METHOD 01/22/2025 4:42 PM EDT [facility] CO2 31 21 - 32 mmol/L LAB CHEMISTRY METHOD 01/22/2025 4:42 PM EDT [facility] Anion Gap 4 3 - 11 LAB CHEMISTRY METHOD 01/22/2025 4:42 PM [facility] Glucose 98 70 - 100 mg/dL LAB CHEMISTRY METHOD 01/22/2025 4:42 PM [facility] BUN 16 5 - 25 mg/dL LAB CHEMISTRY METHOD 01/22/2025 4:42 PM [facility] Creatinine 0.61 0.50 - 1.10 mg/dL LAB CHEMISTRY METHOD 01/22/2025 4:42 PM [facility] eGFR 93 >=60 mL/min/1. 73m2 LAB CHEMISTRY METHOD 01/22/2025 4:42 PM [facility] Comment:Calculation based on the Chronic Kidney Disease Epidemiology Collaboration (CKD-EPI) equation refit without adjustment for race. BUN/Creatinine Ratio 26.2 LAB CHEMISTRY METHOD 01/22/2025 4:42 PM [facility] Calcium 9.7 8.5 - 10.5 mg/dL LAB CHEMISTRY METHOD 01/22/2025 4:42 PM [facility] AST (SGOT) 25 10 - 42 unit/L LAB CHEMISTRY METHOD 01/22/2025 4:42 PM [facility] ALT (SGPT) 40 10 - 60 unit/L LAB CHEMISTRY METHOD 01/22/2025 4:42 PM [facility] Alkaline Phosphatase 146(H) 42 - 121 unit/L LAB CHEMISTRY METHOD 01/22/2025 4:42 PM [facility] Total Protein 7.5 6.0 - 8.0 g/dL LAB CHEMISTRY METHOD 01/22/2025 4:42 PM [facility] Albumin 3.9 3.2 - 5.0 g/dL LAB CHEMISTRY METHOD 01/22/2025 4:42 PM [facility] Total Bilirubin 0.6 0.0 - 1.4 mg/dL LAB CHEMISTRY METHOD 01/22/2025 4:42 PM EDT [facility] Blood Venous blood specimen / Unknown Venipuncture / Unknown 01/22/2025 11:50 AM EDT 01/22/2025 11:[address] Mejia LINE WORKER LAB BLOOD ORDERABLES Final R esult Performing Organization Address City/[facility]/ZIP Co de Phone Number [facility] [address] [place] [address], * ECG 12 lead (01/21/2025 11:01 AM EDT) Ventricular Rate ECG 74 BPM GEMUSE Atrial Rate 74 BPM GEMUSE P-R Interval 164 ms GEMUSE QRS Duration 72 ms GEMUSE Q-T Interval 370 ms GEMUSE QTc 410 ms GEMUSE P Wave Rio 53 degrees GEMUSE R Rio -46 degrees GEMUSE T Rio 4 degrees GEMUSE ECG Interpretation Normal sinus rhythm Left axis deviation Inferior infarct (cited on or before 23-JUN-2008) Cannot rule out Anterior infarct , age undetermined Abnormal ECG When compared with ECG of 23-JUN-2008 09:49, Minimal criteria for Anterior infarct are now Present QT has shortened Confirmed by MD GELA, GIOVANNA ([id number]) on 01/21/2025 9:07:32 PM GEMUSE 01/21/2025 11:0 1 AM EDT 01/21/2025 9:[address] Mejia LINE WORKER ECG ORDERABLES Final Result Performing Organization Address City/[facility]/ZIP Co de Phone Number GEMUSE * LEOBARDO SCREENING DIGITAL (01/03/2023 10:44 AM EDT) Anatomical Region Laterality Modality Mammography 01/03/2023 10:0 3 AM EDT Narrative 01/03/2023 10:44 AM EDT [facility] Diagnostic Imaging Department [address] [place] [address] Patient: GINGER HERNANDEZ /Age/Sex: 1950 - 72 - F Unit#: [id number] Location/Status: [facility] CLI Mnemonic/Ordering Site: [facility] Ordering Physician: CLIF OLSON MD Leobardo Screening Digital - 01/03/231028 Report Status:Signed HISTORY: The patient is a 72-year-old female presenting for routine screening mammography. The patient has a family history of breast cancer involving her mother at age 60, as well as a sister at age 60. FINDINGS: Full-field digital mammography of the breasts bilaterally consisting of tomosynthesis in MLO and CC projection is performed in the XATAe 2000-D unit. Computer aided detection utilizing the iCAD system was utilized. The breasts are again seen to be largely fatty-replaced (the breasts are almost entirely fatty, category A density), as also demonstrated on prior studies most recently 12/31/2021 and most remotely 10/07/2016. Nodular densities bilaterally, most prominent in the right breast, are stable. A skin lesion inferiorly in the left breast is again noted. There is no suspicious cluster of microcalcifications, mass, or area of architectural distortion. There is no skin thickening or nipple retraction. IMPRESSION: No mammographic evidence of malignancy. A negative mammogram in the presence of a clinically suspicious palpable abnormality does not preclude the possibility of malignancy or alter the indications for biopsy. BIRADS Code Class 2: Benign Finding PQRI CPT II 3342F Code 95403, 85211 PQRI 225 CPT II 7025F Dictating Physician: RADHA GRUBBS MD Electronically Signed by: RADHA GRUBBS MD Dic Date/Time: 01/03/23 1036 Sign date/Time: 01/03/23 1044 Procedure Note Radha Grubbs MD - 07/11/2023 [facility] Diagnostic Imaging Department [address] [place] [id number] Patient: GINGER HERNANDEZ Saurabh QuinteroB./Age/Sex: 1950 - 72 - F Unit#: [id number] Location/Status: SPDIMA/REG CLI Mnemonic/Ordering Site: [facility] Ordering Physician: CLIF OLSON MD Leobardo Screening Digital - 01/03/23 - 1028 Report Status:Signed HISTORY: The patient is a 72-year-old female presenting for routinescreening mammography. The patient has a family history of breast cancer involvingher mother at age 60, as well as a sister at age 60. FINDINGS: Full-field digital mammography of the breasts bilaterallyconsisting of tomosynthesis in MLO and CC projection is performed in the [employer] 2000-D unit. Computer aided detection utilizing the iCAD system wasutilized. The breasts are again seen to be largely fatty-replaced (the breasts arealmost entirely fatty, category A density), as also demonstrated on prior studiesmost recently 12/31/2021 and most remotely 10/07/2016. Nodular densitiesbilaterally, most prominent in the right breast, are stable. A skin lesion inferiorlyin the left breast is again noted. There is no suspicious cluster of microcalcifications, mass, or area of architectural distortion. There isno skin thickening or nipple retraction. IMPRESSION: No mammographic evidence of malignancy. A negative mammogram in the presence of a clinically suspicious palpable abnormality does not preclude the possibility of malignancy or alter the indications for biopsy. BIRADS Code Class 2: Benign Finding PQRI CPT II 3342F Code 25532, 18348 PQRI 225 CPT II 7025F Dictating Physician: RADHA GRUBBS MD Electronically Signed by: RADHA GRUBBS MD Dic Date/Time: 01/03/23 1036 Sign date/Time: 01/03/23 1044 [facility] Thuan Olson MD IMG BI PROCEDURES Final Result * DXA BONE DENSITY STUDY 1+ SITS AXIAL SKEL (06/30/2022 1:15 PM EST) Anatomical Region Laterality Modality Bone Densitometr y 04/18/2022 12:0 7 PM EST Narrative 06/30/2022 3:09 PM EST BONE DENSITY (DEXA) Lumbar Spine T-score is -1.7. (SD relative to 20-29 y/o adult) Z-score is 0.6. (SD relative to age matched peers) This is considered osteopenia by WHO criteria. Left Hip T-score is -1.9. Z-score is 0.0. This is considered osteopenia by WHO criteria. Lateral view of the spine demonstrates vertebral heights to be maintained. IMPRESSION: This patient is considered to have osteopenia by WHO criteria. This patient has a 12% risk of major osteoporotic fracture and a 2.8% risk of hip fracture over the next 10 years. (World Health Organization Fracture Risk Assessment) [facility] Department of Internal Medicine recommends using National Osteoporosis Foundation (NOF) guidelines in treatment decisions related to osteoporosis. NOF guidelines suggest considering treatment for postmenopausal women and men aged 50 or older presenting with the following: History of hip or vertebral fracture. T-score = -2.5 (DXA) at the femoral neck, total hip, or spine, after appropriate evaluation to exclude secondary causes. Low bone mass (T-score between -1.0 and -2.5 at the femoral neck or spine) AND a 10-year probability of a hip fracture = 3% OR a 10-year probability of a major osteoporosis-related fracture = 20% based on the [place]-adapted WHO algorithm Please note that all treatment decisions require clinical judgment and consideration of individual patient factors, including patient preferences, co-morbidities, previous drug use, risk factors not captured in the FRAX model (e.g., frailty, falls, vitamin D deficiency, increased bone turnover, interval significant decline in bone density) and possible under- or over-estimation of fracture risk by FRAX. Optional alternative screening schedule based on irene Guallpa., [facility] June 23, 2011 for patients with osteopenia (based on hip BMD T-score) is as follows: * advanced osteopenia (T scores -2.00 to -2.49), BMD testing every year * moderate osteopenia (T scores -1.50 to -1.99), BMD testing every 5 years mild osteopenia or normal BMD (T scores -1.50 and higher), BMD testing every 15 years Procedure Note Jessy Diaz MD - 07/11/2023 BONE DENSITY (DEXA) Lumbar Spine T-score is -1.7. (SD relative to 20-29 y/o adult) Z-score is 0.6. (SD relative to age matched peers) This is considered osteopenia by WHO criteria. Left Hip T-score is -1.9. Z-score is 0.0. This is considered osteopenia by WHO criteria. Lateral view of the spine demonstrates vertebral heights to bemaintained. IMPRESSION: This patient is considered to have osteopenia by WHO criteria. Thispatient has a 12% risk of major osteoporotic fracture and a 2.8% risk of hip fracture over the next10 years. (World Health Organization Fracture Risk Assessment) [facility] Department of Internal Medicine recommendsusing National Osteoporosis Foundation (NOF) guidelines in treatment decisions related toosteoporosis. NOF guidelines suggest considering treatment for postmenopausal women and menaged 50 or older presenting with the following: History of hip or vertebral fracture. T-score = -2.5 (DXA) at the femoral neck, total hip, or spine, afterappropriate evaluation to exclude secondary causes. Low bone mass (T-score between -1.0 and -2.5 at the femoral neck or spine)AND a 10-year probability of a hip fracture = 3% OR a 10-year probability of a majorosteoporosis-related fracture = 20% based on the [place]-adapted WHO algorithm Please note that all treatment decisions require clinical judgment andconsideration of individual patient factors, including patient preferences, co- morbidities,previous drug use, risk factors not captured in the FRAX model (e.g., frailty, falls, vitaminD deficiency, increased bone turnover, interval significant decline in bone density) andpossible under- or over-estimation of fracture risk by FRAX. Optional alternative screening schedule based on irene Guallpa., NEJMJanuary 2011 for patients with osteopenia (based on hip BMD T-score) is as follows: * advanced osteopenia (T scores -2.00 to -2.49), BMD testing every year * moderate osteopenia (T scores -1.50 to -1.99), BMD testing every 5years mild osteopenia or normal BMD (T scores -1.50 and higher), BMD testingevery 15 years Dominique PAZ IMG DXA PROCEDURES Final Result * Hepatitis C Screening (04/18/2022) [facility] Hepatitis C Screening Abstracted Result [facility] Historical Provider HEALTH MAINTENANCE Final Result * Colonoscopy (07/02/2010) [facility] Colonoscopy Abstracted, No Interpretation Anatomical Region Laterality Modality Other Result [facility] Historical Provider HEALTH MAINTENANCE Final Result from Last 3 Months or Most Recently Relevant to Health Maintenance Insurance [employer] MED[employer]ARE Care Teams Hasher Operator Relationship Specialty Start Date End Date Magali Olson MD [address] [place] [id number] PCP - General 02/27/02
[2025-02-10 15:55] LABS: Appearance Urine Clear; Glucose Urine UA Negative (Negative); PH 5.5 (5.0-9.0); Specific Gravity - Urine 1.020 (1.005-1.025); UMIC TRIGGER UA YES
== END 2025-02-10 13:27 | disposition home or self-care (01) ==
LOC: HO.US 13:26
PROVIDERS: PCP Pediatrics; Visit Provider Urology
DX: N20.0 Calculus of kidney (principal); R39.9 Unspecified symptoms and signs involving the genitourinary system
CPT/HCPCS: 76775; 81001; 87086; 87088; 87186

== ENCOUNTER → 2025-02-10 13:29 | Outpatient (BNV) | payer MEDICARE, SELFPAY | PROVIDERS: PCP Pediatrics; Visit Provider Radiology Diagnostic Radiology | DX: N20.0 Calculus of kidney (principal) | CPT/HCPCS: 76775 ==

== ENCOUNTER 2025-04-10 11:16 | Outpatient (AMB) | payer MEDICARE, SELFPAY ==
--- OUTSIDE RECORDS SUMMARY | 2025-04-09 12:00 | XMS_ITS | Encounter Summary ---
Author Organization [facility] Address [address] [place] [address] Care Team Providers Care Sawmilling Operator Name Role Phone Magali Roberts MD Primary Care Provider [phone] Reason for Visit * Imaging (Routine) - Authorized Specialty Diagnoses / Procedures Referred By Kirtiac t Referred To Contact Diagnoses Peripheral vascular insufficiency (CMS/HCC V24) Edema, unspecified type Leg edema, right Procedures Vascular US duplex lower extremity venous bilateral Ave Mejia, TAY [address] [place] [address] Dr [place] [address] [place] [phone] Phone: tel: fax: [facility] Referral ID Status Reason Start Date Expiration Date V isits Requested Visits Authorized [id number] Authorized 01/21/2025 01/21/2026 1 1 Encounter Details Date Type Department Care Team (Latest Contact Info) Description 04/09/2025 12:00 PM EST Ancillary Procedure [facility] [address] [facility] [address] [place] [address] Peripheral vascular insufficiency (CMS/HCC V24); Edema, unspecified type; Bilateral leg edema Social History Tobacco Use Types Packs/Day Years Used Date Smoking Tobacco: Never Smokeless Tobacco: Never Alcohol Use Standard Drinks/Week Comments Yes 0 (1 standard drink = 0.6 oz pur e alcohol) 1 drink a week Housing Instability Answer Date Recorde d Are you worried that in the next 2 months you may not have stable housing? No 02/17/2025 Food Access & Nutrition Answer Date Rec orded Do you have access to a vari ety of food including fruits and vegetables? Yes 02/17/2025 Access to Healthcare Answer Date Record ed Within the last 3 months, ho w many times did you visit the emergency department for your medical care? 1 02/17/2025 Health Literacy Answer Date Recorded How often do you need to hav e someone help you when you read instructions, pamphlets, or other written material from your doctor or pharmacy? Never 02/17/2025 Caregiver: How often do you need to have someone help you when you read instructions, pamphlets, or other written material from your doctor or pharmacy? Not on file 02/17/2025 Financial Risk Answer Date Recorded How hard is it for you to pa y for the very basics like food, housing, medical care, and air conditioning / heating? Not very hard 02/17/2025 Transportation Answer Date Recorded Has the lack of transportati on kept you from meetings, work, or from getting things needed for daily living? No Has the lack of transportati on kept you from medical appointments or from getting medications? No 02/17/2025 Social Isolation Answer Date Recorded How often do you feel lonely or isolated from th ose around you? Never 02/17/2025 Food Risk Answer Date Recorded Within the past 12 months we worried whether our food would run out before we got money to buy more. Never true 02/17/2025 Within the past 12 months th e food we bought just didn't last and we didn't have money to get more. Never true 02/17/2025 Dependent Care Answer Date Recorded Do you need help finding or paying for care for your loved ones. For example, child care center assistant director or elderly care for an older adult? No 02/17/2025 Education Answer Date Recorded Do you think completing more education or training, like finishing a GED, going to college, or learning a trade, would be helpful for you? No 02/17/2025 Employment and Income Answer Date Recor ded During the last four weeks, have you been actively looking for work? No 02/17/2025 Living Situation Answer Date Recorded What is your living situation? Unrecognized valu e 02/17/2025 Comments No Sex and Gender Information Value Date Recorded Sex Assigned at Not on file Legal Sex Female 5:18 PM EST Gender Identity Not on file Sexual Orientation Not on file documented as of this encounter Functional Status * Are you deaf or do you have serious difficulty hearing? Answer Date of Assessment Author No 02/13/2025 7:52 PM EDT Briana Nuno RN * Are you blind or do you have serious difficulty seeing, even when wearing glasses? Answer Date of Assessment Author No 02/13/2025 7:52 PM EDT Briana Nuno RN * Do you have serious difficulty walking or climbing stairs? Answer Date of Assessment Author No 02/13/2025 7:52 PM EDT Briana Nuno RN * Do you have serious difficulty dressing or bathing? Answer Date of Assessment Author No 02/13/2025 7:52 PM EDT Jose Nuno RN * Because of a physical, mental, or emotional condition, do you have serious difficulty doing errandsalone such as visiting the doctor? Answer Date of Assessment Author No 02/13/2025 7:52 PM EDT Briana Nuno RN documented as of this encounter Mental Status * Because of a physical, mental, or emotional condition, do you have serious difficulty concentrating, remembering, or making decisions? (5 years old or older) Answer Entry Date Author No 02/13/2025 7:52 PM EDT Briana Nuno RN documented in this encounter Plan of Treatment Pending Results Name Type Priority Associated Diagnoses Date /Time Vascular US duplex lower extremity venous bilateral Vascular Ultrasound Routine Peripheral vascular insufficiency ([facility]/HCC V24) Edema, unspecified type Bilateral leg edema 04/09/2025 12:21 PM EST documented as of this encounter Visit Diagnoses Diagnosis Peripheral vascular insufficiency (CMS/HCC V24) Edema, unspecified type Bilateral leg edema Edema documented in this encounter Additional Health Concerns Assessment Noted Time PHQ-9 Depression Total Score: 0 02/18/20 25 1:03 PM EDT documented as of this encounter Care Teams Sawmilling Operator Relationship Specialty Start Date End Date Magali Roberts MD [address] [place] [id number] PCP - General 02/27/02 documented as of this encounter
--- NOTE | 2025-04-10 11:36 | A.OFFVIS_ITS ---
Intake Visit Reasons: 1y/US Intake Note: Patient is present for 1y/US Urology Medication:NONE Antibiotic Allergy:SULFA Blood Thinner:NONE Office Machine Punch Operator Required: No Allergies Sulfa (Sulfonamide Antibiotics) Allergy (Mild, Verified 04/10/25 11:37) Unknown HPI Comments Details: 04/10/25--Millie is here for 1 year follow-up, for kidney stones-- ultrasound 02/10/2025 notes right kidney stone is stable. Recent UTI- patient was prescribed Augmentin UTI. History of Present Illness The patient is a 75-year-old female presenting with kidney stones and a recent urinary tract infection. The patient has a history of kidney stones, with a recent renal ultrasound on 02/10/25 noting a stable right kidney stone. The stone has increased in size to 5 mm, and options for management include monitoring or shockwave lithotripsy. The patient reports no symptoms of kidney stones currently, such as back pain or nausea, and is advised to increase fluid intake, particularly water with lemon, to help prevent stone formation. The patient was recently treated for a urinary tract infection with Augmentin, which she completed despite difficulty swallowing the large capsules. Results - Renal ultrasound on 02/10/25: Right kidney stone stable, now 5 mm Plan 1. Kidney Stones - Monitor the kidney stone size -pt declines shockwave lithotripsy at this time. - Encourage increased fluid intake, particularly water with lemon, to prevent stone formation. 2. Urinary Tract Infection - Completed course of Augmentin for recent infection. - Monitor for recurrent infections, particularly during dietary changes. Discussed increased risk with diarrhea/constipation 04/11/24--one year fu kidney stones. Reviewed fu renal US --01/01/24- right kidney stone is stable, 4 mm, was measured at 3 mm on prior renal ultrasound. The patient states she is asymptomatic, denies hematuria or renal colic. She does complain that the urine has a strong odor in his called in she thinks she has a UTI. Urinalysis-in +leukocytes. I will send urine for culture and will empirically prescribed Macrobid 100 mg twice a day for 5 days. 03/06/2023?She is followed today for renal calculi. She has seen Lisa CROSS Greaney last on 12/18/2020 for kidney stones. Patient states that she had multiple procedures for kidney stone treatment including shock-wave lithotripsy, and she states that last procedure was PCNL, and she was told they removed about 9 kidney stones at this time. Since then, she is doing well. I reviewed the renal US resultsrfrom 02/22/2023 revealed 3 mm nonobstructing right lower pole renal stone, previously 2 mm. No hydronephrosis. Discussed to reduce sodium intake. Discussed to consume adequate amount of water. Discussed Low oxalate diet---green leafy vegetable, nuts, and tea in moderation as they are rich in oxalate. [facility] Medical History Renal calculi Surgical History History of surgery Hx of hysterectomy Family History Father No problems noted. Mother No problems noted. Social History Alcohol intake: current Alcohol intake frequency: holidays/special occasions on ly Patient Tobacco Use Status: Never used Tobacco Review of Systems Const All systems reviewed & are unremarkable except as noted in HPI and below Reports no additional complaints Eyes Reports no additional complaints ENT Reports no additional complaints Card Reports no additional complaints Resp Reports no additional complaints GI Reports no additional complaints Reports as per HPI Musc Reports no additional complaints Skin/Breast Reports system reviewed and no additional complaints, except as documented Neuro Reports no additional complaints Psych Reports no additional complaints Endo Reports no additional complaints González/Lymph Reports no additional complaints Aller/Immun Reports no additional complaints Results AMB Urinalysis, Automated UA Leukoctes 125 Shama/uL Last Edit by Leyla Millan on 04/10/25 16:13 UA Nitrite Negative Last Edit by Leyla Millan on 04/10/25 16:13 UA Urobilinogen 0.2 mg/dL Last Edit by Leyla Millan on 04/10/25 16:13 UA Protein 15 mg/dL Last Edit by Leyla Millan on 04/10/25 16:13 UA pH 5.5 Last Edit by Leyla Millan on 04/10/25 16:13 UA Blood 0 Gino/uL Last Edit by Leyla Millan on 04/10/25 16:13 UA Specific [place] 1.020 Last Edit by Leyla Millan on 04/10/25 16:13 UA Ketone Negative Last Edit by Leyla Millan on 04/10/25 16:13 UA Bilirubin 0 mg/dL Last Edit by Leyla Millan on 04/10/25 16:13 UA Glucose 0 mg/dL Last Edit by Leyla Millan on 04/10/25 16:13 Results Reviewed Results Reviewed: Laboratory Last Values Urine pH (Auto) 5.5 04/10/25 12:48 Specific [place] (Auto) 1.020 04/10/25 12:48 Urine Protein (Auto) 15 mg/dL 04/10/25 12:48 Glucose (UA)(Auto) 0 mg/dL 04/10/25 12:48 Urine Ketones (Auto) Negative 04/10/25 12:48 Urine Blood (Auto) 0 Gino/uL 04/10/25 12:48 Urine Nitrite (Auto) Negative 04/10/25 12:48 Urine Bilirubin (Auto) 0 mg/dL 04/10/25 12:48 Urine Urobilinogen (Auto) 0.2 mg/dL 04/10/25 12:48 Leukocyte Esterase (Auto) 125 Shama/uL 04/10/25 12:48 Date of Service: 02/10/25 Reason for Exam: N20.0 - Calculus of kidney EXAMINATION: US KIDNEY BILATERAL HISTORY: N20.0 - Calculus of kidney TECHNIQUE: Real-time grayscale ultrasound imaging of the kidneys was performed and images were reviewed. COMPARISON: Comparison is made with the prior examination dated 01/01/2024. FINDINGS: Right kidney: The right kidney measures 11.0 x 4.2 x 5.0 cm. Renal parenchymal echotexture and thickness are normal. There is a cyst in the interpolar region measuring 8 x 7 x 8 mm. There is a 5 x 3 x 4 mm nonobstructing calculus at the lower pole. There is no hydronephrosis. Left Kidney: The left kidney measures 11.8 x 5.0 x 3.6 cm. Renal parenchymal echotexture and thickness are normal. There are no masses. There is no hydronephrosis or renal calculi. IMPRESSION: 5 mm nonobstructing calculus at the lower pole of the right kidney. No hydronephrosis. Date of Service: 01/01/24 US RETROPERITONEAL LIMITED (RENAL ONLY) CLINICAL INFORMATION: Calculus of kidney. COMPARISON: Renal ultrasound 02/22/2023 and 02/10/2022. TECHNIQUE: Real-time imaging of the kidneys. Limited visualization due to bowel gas. FINDINGS: RIGHT KIDNEY: 11.0 x 4.1 x 4.8 cm (SAG x AP x TRV). 0.4 cm lower pole cortical calculus. No hydronephrosis. Lobulated right renal contour. 1.2 cm lower pole cyst with benign features. There is no indication for follow-up imaging. Limited visualization. LEFT KIDNEY: 11.1 x 4.7 x 4.3 cm (SAG x AP x TRV). Left renal caliectasis. No obstructing left renal calculi. Lobulated renal contour. Limited visualization. IMPRESSION: 1. A 0.4 cm right renal lower pole nonobstructing calculus. No right hydronephrosis. 2. Left renal caliectasis. No left renal calculi appreciated. 3. Lobulated bilateral renal contours difficult to evaluate due to limited visualization. Date of Service: 02/22/23 EXAMINATION:? US RETROPERITONEAL LIMITED (RENAL ONLY) CLINICAL INFORMATION: Calculus of kidney. COMPARISON:? Renal ultrasound 02/10/2022 and 11/19/2020. FINDINGS: RIGHT KIDNEY: 11.6 x 4.7 x 4.0 cm (SAG x AP x TRV). The kidney is normal in size, contour, and echogenicity. Renal cortical thickness is normal. No hydronephrosis. Benign-appearing renal cyst measuring 1 cm. No follow up imaging is recommended. 3 mm nonobstructing lower pole renal stone, previously 2 mm. LEFT KIDNEY: 10.8 x 4.5 x 4.1 cm (SAG x AP x TRV). The kidney is normal in size and echogenicity. Renal cortical thickness is normal. No calculi or focal parenchymal lesions. No hydronephrosis. IMPRESSION:? 3 mm nonobstructing right lower pole renal stone, previously 2 mm. No hydronephrosis. Assessment & Plan Assessment & Plan (1) Renal calculi: Code(s): N20.0 - Calculus of kidney Category: Medical (2) UTI symptoms: Code(s): R39.9 - Unspecified symptoms and signs involving the genitourinary system Category: Medical Plan Plan 1. Kidney Stones - Monitor the kidney stone size -pt declines shockwave lithotripsy at this time. - Encourage increased fluid intake, particularly water with lemon, to prevent stone formation. 2. Urinary Tract Infection - Completed course of Augmentin for recent infection. - Monitor for recurrent infections, particularly during dietary changes. Discussed increased risk with diarrhea/constipation Orders: Orders AMB Urinalysis Automated 04/10/25 Z13.9 - Encounter for screening, unspecified Patient Instructions: The patient had an opportunity to ask questions regarding treatment plan. The patient expressed understanding and agreement with the above treatment plan. The patient is aware they should contact our office by phone for worsening of their current condition or the appearance of new symptoms. Compliance is encouraged with any medications and followup testing that is ordered. It is a privilege to be allowed the opportunity to participate in the urologic care of your patient. If you have any questions or concerns regarding treatment for the above conditions please do not hesitate to contact me. The office telephone contact is [phone]. This note is constructed in part using voice recognition software. While every effort has been made to ensure accuracy special education resource room teacher errors may have been included. Yours sincerely, Letty London MD Scribe Plan - Not visible on output: Patient was informed and verbally consented to the use of an ambient scribe for clinic note documentation during this visit. Coding Level of Care Code Est Pt Level 3 (19241) Complex EM visit Add On G2211 Diagnoses Renal calculi N20.0 UTI symptoms R39.9
--- OUTSIDE RECORDS SUMMARY | 2025-04-10 14:03 | XMS_ITS | Encounter Summary ---
Author Organization [facility] Address [address] [place] [address] Care Team Providers Care Dial Equipment Engineer Name Role Phone Magali Roberts MD Primary Care Provider [phone] Reason for Visit * Reason Onset Date Comments Referral 04/01/2025 Encounter Details Date Type Department Care Team ([facility] Contact Info) Description 04/01/2025 Telephone Adult [facility] [address] [place] [phone] Magali Roberts MD [address] [place] [address] Social History Tobacco Use Types Packs/Day Years [...] your loved ones. For example, child care development specialist or elderly care for an older adult? [...] of Assessment Author No 02/13/2025 7:52 PM Briana Hartley RN * Are you blind or do you have serious difficulty seeing, even when wearing glasses? Answer Date of Assessment Author No 02/13/2025 7:52 PM Briana Hartley RN * Do you have serious difficulty walking or climbing stairs? Answer Date of Assessment Author No 02/13/2025 7:52 PM Briana Hartley, RN * Do you have serious difficulty dressing or bathing? Answer Date of Assessment Author No 02/13/2025 7:52 PM EDT Briana Nuno RN * Because of a physical, [...] Briana Nuno RN documented in this encounter Progress Notes * Magali Roberts MD - 04/09/2025 9:32 AM EST We do not have urology department. If she wants to change provider she would need to provide us with where she wants to go. * Hector Phillip - 04/01/2025 3:33 PM EDT Pt calling to find out if a referral can be given for urology through [facility]. Pt has a urologist right now but feels it is just not working with them. Pls advise. documented in this encounter Plan of Treatment Not on file documented as of this encounter Visit Diagnoses Diagnosis Stress incontinence of urine- Primary documented in this encounter Additional Health Concerns Assessment Noted Time PHQ-9 Depression Total Score: 0 02/18/20 25 1:03 PM EDT documented as of this encounter Care Teams Dial Equipment Engineer Relationship Specialty Start Date End Date Magali Roberts MD [address] [place] [id number] PCP - General 02/27/02 documented as of this encounter
--- OUTSIDE RECORDS SUMMARY | 2025-04-10 14:04 | XMS_ITS | Encounter Summary ---
Author Organization [facility] Address [address] [place] [address] Care Team Providers Care Supervisor Prop Making Name Role Phone Magali Roberts MD Primary Care Provider [phone] Reason for Visit * Reason Onset Date Comments Referral 04/07/2025 Encounter Details Date Type Department Care Team ([facility] Contact Info) Description 04/07/2025 Telephone Adult [facility] [address] [place] [address] Farideh Lawrence LPN Social History Tobacco Use Types Packs/Day Years [...] care for your loved ones. For example, children's ministries director or elderly care for an older [...] documented in this encounter Progress Notes * Farideh Lawrence LPN - 04/07/2025 8:56 AM EST Please disregard my previous message. After some digging, I found out who and why the prescription was given. But I would like to know if you could still recommend a different urologist in the [facility]. documented in this encounter Plan of Treatment Not on file documented as of this encounter Visit Diagnoses Not on filedocumented in this encounter Additional Health Concerns Assessment Noted Time PHQ-9 Depression Total Score: 0 02/18/20 1:03 PM EDT documented as of this encounter Care Teams Supervisor Prop Making Relationship Specialty Start Date End Date Magali Roberts MD [address] [place] [id number] PCP - General 02/27/02 documented as of this encounter
--- OUTSIDE RECORDS SUMMARY | 2025-04-10 14:04 | XMS_ITS | Clinical Summary ---
Author Organization [facility] [employer] [facility] Address [address] [facility] [address] [place] [address] Phone Care Team Providers Care Clerk Entry Level Name Role Phone Magali Olson MD Primary Care Provider [phone] Allergies Active Allergy Reactions Criticality Noted Date Comments Sulfa (Sulfonamide Antibiotics) 12/2021 Diarrhea, abd pain Medications erythromycin 5 mg/gram (0.5 %) ophthalmic ointment APPLY TO BOTH EYES TWICE DAILY OR MORE OFTEN NEEDED 09/22/19 24 Active acetaminophen (TYLENOL) 325 mg tablet Take [...] mouth 1 (one) time each day. Active [id number] olic acid-lutein (Adult Multivitamin, w-lutein,) 200-137.5 mcg tablet,chewabl e Chew 2 each 1 (one) time each day. Gummy chews Active atorvastatin (Lipitor) 10 mg tablet Take 1 tablet (10 mg total) by mouth at bedtime. 90 tablet 3 02/05/20 25 Active gabapentin (NEURONTIN) 100 mg capsuleIndicat ions:Restless leg syndrome TAKE 1 CAPSULE BY MOUTH EVERY DAY AT BEDTIME FOR 4 WEEKS 28 capsule 1 04/04/20 25 Active gabapentin (NEURONTIN) 100 mg capsuleIndicat ions:Restless leg syndrome Take 1 capsule (100 mg total) by mouth at bedtime for 28 days. 14 each 1 03/03/20 25 025 Discontinued Active Problems Problem Noted Date Diagnosed Date Restless leg syndrome 02/18/2025 Overview (03/03/2025): 03/03: gabapentin 100 mg 2 hours before bed, for 1-2 weeks when symptoms present Hypertension 10/09/2023 Overview (06/20/2024): Last Assessment & [...] Glaucoma suspect 07/14/2007 Nephrolithiasis 07/14/2007 Overview (06/20/2024): [facility] Encounters Date Type Department Care Team Description 04/09/2025 12:00 PM EST Ancillary Procedure [facility] - [address] [place] [phone] Peripheral vascular insufficiency (CMS/HCC V24); Edema, unspecified type; Bilateral leg edema 04/07/2025 Telephone Adult [facility] [address] [place] [address] Farideh Lawrence LPN 04/02/2025 Telephone [facility] - [address] [place] [phone] Ave Mejia NP 04/01/2025 Telephone Adult [facility] [address] [place] [address] Magali Olson MD 02/27/2025 Telephone [facility] [address] [place] [address] Magali Olson MD 02/18/2025 9:30 AM EDT Office Visit Adult [facility] [address] [place] [address] [facility] PA Encounter for follow-up (Primary Dx); Chest pain, unspecified type; Restless leg syndrome; Screening, iron deficiency anemia 02/14/[address] [facility] [address] [place] [address] Ave Mejia NP 02/13/2025 5:52 PM EDT - 02/13/2025 9:55 PM EDT Emergency [facility] Emergency [address] [place] [address] Harsh Ramos MD Dunbar, Jono Chung MD Chest pain, unspecified type (Primary Dx); Hives Discharge Disposition: Home or Self Care 02/04/[address] [facility] [address] [place] [address] Ave Mejia NP 01/21/2025 10:40 AM EDT Office Visit [facility] [address] [place] [address] [address] Mejia, TAY Mitral valve prolapse (Primary Dx); Primary hypertension; Peripheral vascular insufficiency (CMS/HCC V24); Edema, unspecified type; Bilateral leg edema from Last 3 Months Immunizations Immunization Administration Dates Next Due Influenza trivalent, 0.5mL [...] Date Site/Laterality Comments OTHER SURGICAL HISTORY PROCEDURE: CT NEPHROLITHOTOMY SECONDARY SURG OPERJ CALCULUS; COMMENT: x5 treatments HYSTERECTOMY age 44 PROCEDURE: HISTORICAL HYSTERECTOMY; COMMENT: fibroids, TAHBSO VAGINAL DELIVERY PROCEDURE: HISTORICAL VAGINAL DELIVERY; COMMENT: 2 COLONOSCOPY 06/30/10 [facility] PROCEDURE: HISTORICAL COLONOSCOPY; COMMENT: tics; repeat in [...] Date Smoking Tobacco: Never Smokeless Tobacco: Never Tobacco Cessation:Counseling Given: Not Answered Alcohol Use Standard Drinks/Week Comments Yes 0 [...] for your loved ones. For example, child welfare specialist or elderly care for an older [...] Sign Reading Time Taken Comments Blood Pressure 140/76 02/18/2025 10:13 AM EDT Pulse 78 02/18/2025 9:16 AM EDT Temperature 37.1 C (98.7 F) 02/18/2025 9:16 AM EDT Respiratory Rate 18 02/18/2025 9:16 AM EDT Oxygen Saturation 100% 02/13/2025 7:57 PM EDT Inhaled Oxygen Concentration - - Weight 60.2 kg (132 lb 12.8 oz) 02/18/2025 9:16 AM EDT Height 157.5 cm (5' 2 ) 02/18/2025 9:16 AM EDT Body Mass Index 24.29 02/18/2025 9:16 AM EDT Plan of Treatment Health Maintenance Due Date Last Done Comments Colorectal Cancer Screening: Colonoscopy 07/02/2015 07/02/2010 Medicare Annual Wellness Visit 04/18/2023 04/18/2022 RSV Immunization Adult Patients (1 - 1-dose 75+ series) 2024 Influenza Vaccine (#1) 2025 , 02/17/2022, 02/26/2021, Additional history exists Hypertension/CHF/CAD Annual BMP Blood Test 02/13/2026 02/13/2025, 01/22/2025, 04/18/2022 Social Influencers of Health Screening 02/17/2026 02/17/2025 Falls Risk Assessment 02/18/2026 02/18/2025 DTaP,Tdap,and Td Vaccines (3 - Td or Tdap) 12/13/2027 12/12/2017, 07/12/2007 Cholesterol Screening (Lipid Panel) 02/25/2030 02/25/2025, 01/22/2025, 04/18/2022 Osteoporosis Screening (Bone Density Screening) 06/30/2032 06/30/2022 Pneumococcal Vaccine: 50+ Years Completed 02/14/2018, 02/06/2017 Hepatitis C Screening Completed 04/18/2022 Breast Cancer Screening Discontinued 01/04/20, 12/31/2021, 12/29/2020, Additional history exists Zoster Vaccines Completed 07/16/2023, 05/15/2023 COVID-19 Vaccine Completed 02/13/2025, , 05/08/2023, Additional history exists Depression Screening Completed 02/17/2025 HIB Vaccines Aged Out No longer eligi [...] Procedure Name Priority Date/Time Associated Diagnosis Comments HERNANDEZ URINE CULTURE TUBE Routine 03/26/2025 11:54 AM EDT Genitourinary symptoms URINALYSIS WITH REFLEX MICROSCOPIC AND CULTURE Routine 03/26/2025 11:54 AM EDT Genitourinary symptoms URINALYSIS WITH REFLEX MICROSCOPIC AND CULTURE Routine 03/26/2025 11:54 AM EDT Genitourinary symptoms CULTURE URINE Routine 03/26/2025 11:54 AM EDT Genitourinary symptoms CBC WITH AUTO DIFFERENTIAL Routine 02/25/2025 2:21 PM EDT Screening, iron deficiency anemia LIPID PANEL WITH REFLEX TO DIRECT LDL Routine 02/25/2025 2:21 PM EDT Mitral valve prolapse Primary hypertension IRON AND TIBC Routine 02/25/2025 2:21 PM EDT Screening, iron deficiency anemia FERRITIN Routine 02/25/2025 2:21 PM EDT Screening, iron deficiency anemia CBC AND DIFFERENTIAL Routine 02/25/2025 2:21 PM EDT Screening, iron deficiency anemia ECG ANNOTATED 02/14/2025 ECG 12-LEAD STAT 02/13/2025 7:17 PM EDT TROPONIN I HIGH SENSITIVITY Timed 02/13/2025 7:10 PM EDT XR CHEST 2 VIEWS STAT 02/13/2025 5:08 PM EDT CBC WITH AUTO DIFFERENTIAL STAT 02/13/2025 4:55 PM EDT B-TYPE NATRIURETIC PEPTIDE STAT 02/13/2025 4:55 PM EDT MAGNESIUM STAT 02/13/2025 4:55 PM EDT LIPASE STAT 02/13/2025 4:55 PM EDT COMPREHENSIVE METABOLIC PANEL STAT 02/13/2025 4:55 PM EDT CBC AND DIFFERENTIAL STAT 02/13/2025 4:55 PM EDT TROPONIN I HIGH SENSITIVITY Timed 02/13/2025 4:55 PM EDT ECG 12-LEAD STAT 02/13/2025 4:43 PM EDT EXTERNAL CLINICAL LAB 02/10/2025 EXTERNAL ULTRASOUND REPORT 02/10/2025 CBC WITH AUTO DIFFERENTIAL Routine 01/22/2025 11:50 [...] Relevant to Health Maintenance Results * (ABNORMAL) Urinalysis with reflex microscopic and culture (03/26/2025 11:54 AM EDT) Specific [place] Urine 1.015 1.003 - 1.030 LAB URINALYSIS - AUTOMATED METHOD 03/26/2025 2:05 PM [facility] pH, Urine 7.0 5.0 - 8.0 pH LAB URINALYSIS - AUTOMATED METHOD 03/26/2025 2:05 PM [facility] Leukocytes, Urine Small(A) Negative LAB URINALYSIS - AUTOMATED METHOD 03/26/2025 2:05 PM [facility] Nitrite, Urine Negative Negative LAB URINALYSIS - AUTOMATED METHOD 03/26/2025 2:05 PM [facility] Protein, Urine Negative <=Trace mg/dL LAB URINALYSIS - AUTOMATED METHOD 03/26/2025 2:05 PM [facility] Glucose, Urine Negative Negative mg/dL LAB URINALYSIS - AUTOMATED METHOD 03/26/2025 2:05 PM [facility] Ketones, Urine Negative Negative mg/dL LAB URINALYSIS - AUTOMATED METHOD 03/26/2025 2:05 PM [facility] Urobilinogen, Urine 1.0 0.2 - 1.0 mg/dL LAB URINALYSIS - AUTOMATED METHOD 03/26/2025 2:05 PM [facility] Bilirubin, Urine Negative Negative LAB URINALYSIS - AUTOMATED METHOD 03/26/2025 2:05 PM [facility] Blood, Urine Negative Negative LAB URINALYSIS - AUTOMATED METHOD 03/26/2025 2:05 PM [facility] RBC, Urine 2.7 0 - 4 /HPF LAB URINALYSIS - AUTOMATED METHOD 03/26/2025 2:05 PM [facility] WBC, Urine 26.8(H) 0 - 4 /HPF LAB URINALYSIS - AUTOMATED METHOD 03/26/2025 2:05 PM [facility] Squamous Epithelial, Urine 2 0 - 60 /LPF LAB URINALYSIS - AUTOMATED METHOD 03/26/2025 2:05 PM [facility] Bacteria, Urine Few(A) Negative /HPF LAB URINALYSIS - AUTOMATED METHOD 03/26/2025 2:05 PM [facility] Hyaline Casts, Urine 0.8 0 - 3 /LPF LAB URINALYSIS - AUTOMATED METHOD 03/26/2025 2:05 PM [facility] Urine Urine specimen obtained by clean catch procedure / Unknown Non-blood Collection / Unknown 03/26/2025 11:54 AM EDT 03/26/2025 11:54 AM EDT Letty London MD LAB URINE ORDERABLES Fi nal Result Performing Organization Address [facility]/ZIP Co de Phone Number [facility] [address] [place] [address], [place] [phone] * Hernandez urine culture tube (03/26/2025 11:54 AM EDT) Extra Tube Hold for add-ons. 03/26/2025 5:01 PM EDT [facility] Comment:Auto resulted. Urine Urine specimen obtained by clean catch procedure / Unknown Non-blood Collection / Unknown 03/26/2025 11:54 AM EDT 03/26/2025 11:54 AM EDT Letty London MD LAB URINE ORDERABLES Fi nal Result Performing Organization Address [facility] de Phone Number [facility] [address] [place] [address], [place] [phone] * (ABNORMAL) Culture urine (03/26/2025 11:54 AM EDT) Culture, Urine 10,000-49,000 CFU/mL Escherichia coli(A) LEA 03/28/2025 10:46 AM EDT [facility] Urine Urine specimen obtained by clean catch procedure / Unknown Non-blood Collection / Unknown 03/26/2025 11:54 AM EDT 03/26/2025 2:05 PM EDT Narrative Organism Antibiotic Method Susceptibility Escherichia coli Amoxicillin/Clavulanate LEA 4 ug/ml: Susceptible Escherichia coli Ampicillin/Sulbactam LEA 4 ug/ml: Susceptible Escherichia coli Piperacillin/Tazobactam LEA <=4 ug/ml: Susceptible Escherichia coli Cefazolin (Urine) LEA 2 ug/ml: Susceptible Escherichia coli Cefoxitin LEA <=4 ug/ml: Susceptible Escherichia coli Ceftazidime LEA <=0.5 ug/ml: Susceptible Escherichia coli Ceftriaxone LEA <=0.25 ug/ml: Susceptible Escherichia coli Cefepime LEA <=0.12 ug/ml: Susceptible Escherichia coli Meropenem LEA <=0.25 ug/ml: Susceptible Escherichia coli Amikacin LEA 2 ug/ml: Susceptible Escherichia coli Gentamicin LEA <=1 ug/ml: Susceptible Escherichia coli Ciprofloxacin LEA <=0.06 ug/ml: Susceptible Escherichia coli Levofloxacin LEA <=0.12 ug/ml: Susceptible Escherichia coli Nitrofurantoin LEA <=16 ug/ml: Susceptible Escherichia coli Trimethoprim/Sulfamethoxazole LEA <=20 ug/ml: Susceptible Letty London MD LAB MICROBIOLOGY - GENE RAL ORDERABLES Final Result [facility] [address] [place] [address], [place] [phone] * Lipid panel with reflex to direct LDL (02/25/2025 2:21 PM EDT) Only the most recent of2 resultswithin the time period is included. Cholesterol 149 0 - 200 mg/dL LAB CHEMISTRY METHOD 02/25/2025 4:22 PM EDT [facility] Triglycerides 108 0 - 150 mg/dL LAB CHEMISTRY METHOD 02/25/2025 4:22 PM EDT [facility] HDL 46 >=40 mg/dL LAB CHEMISTRY METHOD 02/25/2025 4:22 PM T [facility] LDL Calculated 81 0 - 100 mg/dL LAB CHEMISTRY METHOD 02/25/2025 4:22 PM T [facility] Comment:Estimated LDL Calcul ated using equation: Total cholesterol - HDL cholesterol - (Triglycerides/5) VLDL Cholesterol Tunde 21.6 mg/dL LAB CHEMISTRY METHOD 02/25/2025 4:22 PM EDT [facility] Non HDL Chol. (LDL+VLDL) 103 <145 mg/dL LAB CHEMISTRY METHOD 02/25/2025 4:22 PM [facility] Chol/HDL Ratio 3.2 0.0 - 4.4 LAB CHEMISTRY METHOD 02/25/2025 4:22 PM [facility] Blood Venous blood specimen / Unknown Venipuncture / Unknown 02/25/2025 2:21 PM EDT 02/25/2025 2:[address] [facility] [employer] LAB BLOOD ORDERABLES Final R esult [facility] [address] [place] [address], * (ABNORMAL) CBC auto differential (02/25/2025 2:21 PM EDT) Only the most recent of3 resultswithin the time period is included. WBC 8.6 4.8 - 10.8 K/mcL LAB HEMETOLOGY METHOD 02/25/2025 3:38 PM EDT [facility] RBC 4.40 3.80 - 4.80 M/mcL LAB HEMETOLOGY METHOD 02/25/2025 3:38 PM EDT [facility] Hemoglobin 12.7 11.5 - 16.0 g/dL LAB HEMETOLOGY METHOD 02/25/2025 3:38 PM EDT [facility] Hematocrit 40.1 35.0 - 47.0 % LAB HEMETOLOGY METHOD 02/25/2025 3:38 PM EDT [facility] MCV 91.1 79.0 - 98.0 FL LAB HEMETOLOGY METHOD 02/25/2025 3:38 PM EDT [facility] MCH 28.9 27.0 - 32.0 pcg LAB HEMETOLOGY METHOD 02/25/2025 3:38 PM EDT [facility] MCHC 31.7(L) 32.0 - 37.0 g/dL LAB HEMETOLOGY METHOD 02/25/2025 3:38 PM EDT [facility] RDW 12.4 11.0 - 15.0 % LAB HEMETOLOGY METHOD 02/25/2025 3:38 PM EDT [facility] Platelets 271 130 - 400 K/mcL LAB HEMETOLOGY METHOD 02/25/2025 3:38 PM EDT [facility] MPV 10.4 7.0 - 11.0 FL LAB HEMETOLOGY METHOD 02/25[facility]2025 3:[facility] NRBC 0.0 <1.0 % LAB HEMETOLOGY METHOD 02/25/2025 3:38 PM EDT [facility] NRBC Absolute 0.00 <0.10 K/mcL LAB HEMETOLOGY METHOD 02/25/2025 3:38 PM [facility] Neutrophils Relative 47.2 % LAB HEMETOLOGY METHOD 02/25/2025 3:38 PM [facility] Lymphocytes Relative 41.0 % LAB HEMETOLOGY METHOD 02/25/2025 3:38 PM [facility] Monocytes Relative 8.8 % LAB HEMETOLOGY METHOD 02/25/2025 3:38 PM [facility] Eosinophils Relative 2.5 % LAB HEMETOLOGY METHOD 02/25/2025 3:38 PM [facility] Basophils Relative 0.3 % LAB HEMETOLOGY METHOD 02/25/2025 3:38 PM [facility] Immature Granulocytes Relative 0.2 % LAB HEMETOLOGY METHOD 02/25/2025 3:38 PM [facility] Neutrophils Absolute 4.07 1.50 - 7.00 K/mcL LAB HEMETOLOGY METHOD 02/25/2025 3:38 PM [facility] Lymphocytes Absolute 3.54 1.00 - 5.00 K/mcL LAB HEMETOLOGY METHOD 02/25/2025 3:38 PM [facility] Monocytes Absolute 0.76 0.20 - 1.00 K/mcL LAB HEMETOLOGY METHOD 02/25/2025 3:38 PM EDT [facility] Eosinophils Absolute 0.22 0.00 - 0.50 K/[facility] LAB HEMETOLOGY METHOD 02/25/2025 3:38 PM EDT [facility] Basophils Absolute 0.03 0.00 - 0.20 K/[facility] LAB HEMETOLOGY METHOD 02/25/2025 3:38 PM EDT [facility] Immature Granulocytes Absolute 0.02 0.00 - 0.03 K/[facility] LAB HEMETOLOGY METHOD 02/25/2025 3:38 PM EDT [facility] Blood Venous blood specimen / Unknown Venipuncture / Unknown 02/25/2025 2:21 PM EDT 02/25/2025 2:21 PM EDT [facility] BLOOD ORDERABLES Final Resul t Performing Organization Address [facility] de Phone Number [facility] [address] [place] [address], [place] [phone] * Iron and TIBC (02/25/2025 2:21 PM EDT) Iron 107 40 - 150 mcg/dL LAB CHEMISTRY METHOD 02/25/2025 4:22 PM EDT [facility] TIBC 323 250 - 450 mcg/dL LAB CHEMISTRY METHOD 02/25/2025 4:22 PM EDT [facility] Iron Saturation 33 15 - 50 % LAB CHEMISTRY METHOD 02/25/2025 4:22 PM EDT [facility] Blood Venous blood specimen / Unknown Venipuncture / Unknown 02/25/2025 2:21 PM EDT 02/25/2025 2:21 PM EDT [facility] BLOOD ORDERABLES Final Resul t Performing Organization Address [facility]/ZIP Co de Phone Number [facility] [address] [place] [address], [place] [phone] * Ferritin (02/25/2025 2:21 PM EDT) Pathologist [facility] Ferritin 157 8 - 252 ng/mL LAB CHEMISTRY METHOD 02/25/2025 4:22 PM EDT [facility] Blood Venous blood specimen / Unknown Venipuncture / Unknown 02/25/2025 2:21 PM EDT 02/25/2025 2:21 PM EDT us [facility] BLOOD ORDERABLES Final Resul t [facility] [address] [place] [address], [place] [phone] * ECG-Annotated (02/14/2025) Provider Onteto STILES ECG ORDERABLES Final Result * ECG 12 lead (02/13/2025 7:17 PM EDT) Only the most recent of3 resultswithin the time period is included. Pathologist [facility] Ventricular Rate ECG 75 BPM GEMUSE Atrial Rate 75 BPM GEMUSE P-R Interval 174 ms GEMUSE QRS Duration 80 ms GEMUSE Q-T Interval 408 ms GEMUSE QTc 455 ms GEMUSE P Wave [place] 20 degrees GEMUSE R [place] -38 degrees GEMUSE T [place] 6 degrees GEMUSE ECG Interpretation Normal sinus rhythm Left axis deviation Minimal voltage criteria for LVH, may be normal variant Possible Inferior infarct (cited on or before 23-JUN-2008) Abnormal ECG When compared with ECG of 13-FEB-2025 16:43, No significant change was found Confirmed by MD GELA, GIOVANNA ([id number]) on 02/14/2025 4:10:40 PM GEMUSE 02/13/2025 7:17 PM EDT 02/14/2025 4:10 PM EDT us Harsh Ray MD ECG ORDERABLES Edit ed Result - Final GEMUSE * Troponin I high sensitivity (02/13/2025 7:10 PM EDT) Only the most recent of2 resultswithin the time period is included. High Sensitivity Troponin I 32 <=54 ng/L LAB CHEMISTRY METHOD 02/13/2025 9:16 PM EDT [facility] Blood Venous blood specimen / Unknown Venipuncture / Unknown 02/13/2025 7:10 PM EDT 02/13/2025 8:49 PM EDT Narrative [facility] - 02/13/2025 9:16 PM EDT High levels of biotin in samples may falsely decrease hsTroponin values. Use caution when interpreting hsTroponin results in patients taking biotin who exhibit renal impairment (eGFR <60) or in patients taking more than 20 mg/day of biotin. us Harsh Ray MD LAB BLOOD ORDERABLES Final Result [facility] [address] [place] [address], [place] [phone] * XR Chest 2 Views (02/13/2025 5:08 PM EDT) Anatomical Region Laterality Modality Body Radiographic Margarita ging 02/14/2025 9:35 AM EDT Impressions 02/14/2025 9:35 AM EDT No acute findings. -------- FINAL REPORT -------- Dictated By: Zack Wagner Dictated Date: 02/14/2025 09:35 ET Assigned Physician: Zack Wagner Reviewed and Electronically Signed By: Zack Wagner Signed Date: 02/14/2025 09:35 ET Workstation ID: [id number] Transcribed By: Self Edit Transcribed Date: 02/14/2025 09:35 ET Narrative 02/14/2025 9:35 AM EDT PROCEDURE: PA and lateral radiographs of the chest. HISTORY: chest pain. COMPARISON: None. FINDINGS: Mild degenerative changes of the spine. Atherosclerotic calcifications of the aorta. Lungs, pleural spaces, pulmonary vasculature, and cardiomediastinal contours are normal. Procedure Note Zack Wagner MD - 02/14/2025 PROCEDURE: PA and lateral radiographs of the chest. HISTORY: chest pain. COMPARISON: None. FINDINGS: Mild degenerative changes of the spine. Atherosclerotic calcifications ofthe aorta. Lungs, pleural spaces, pulmonary vasculature, andcardiomediastinal contours are normal. IMPRESSION: No acute findings. -------- FINAL REPORT -------- Dictated By: Zack Wagner Dictated Date: 02/14/2025 09:35 ET Assigned Physician: Zack Wagner Reviewed and Electronically Signed By: Zack Wagner Signed Date: 02/14/2025 09:35 ET Workstation ID: [id number] Transcribed By: Self Edit Transcribed Date: 02/14/2025 09:35 ET Harsh Ray MD IMG XR PROCEDURES Fi nal Result * B-type natriuretic peptide (02/13/2025 4:55 PM EDT) Pathologist [facility] BNP 20 <=100 pcg/mL LAB CHEMISTRY METHOD 02/13/2025 6:07 PM EDT [facility] Blood Venous blood specimen / Unknown Venipuncture / Unknown 02/13/2025 4:55 PM EDT 02/13/2025 5:29 PM EDT Harsh Ray MD LAB BLOOD ORDERABLES Final Result [facility] [address] [place] [address], * Magnesium (02/13/2025 4:55 PM EDT) Only the most recent of2 resultswithin the time period is included. Pathologist [facility] Magnesium 1.9 1.9 - 2.6 mg/dL LAB CHEMISTRY METHOD 02/13/2025 5:59 PM EDT [facility] Blood Venous blood specimen / Unknown Venipuncture / Unknown 02/13/2025 4:55 PM EDT 02/13/2025 5:29 PM EDT Harsh Ray MD LAB BLOOD ORDERABLES Final Result Performing Organization Address [facility]/ZIP Co de Phone Number [facility] [address] [place] [address], [place] [phone] * Lipase (02/13/2025 4:55 PM EDT) Lipase 35 13 - 75 unit/L LAB CHEMISTRY METHOD 02/13/2025 5:59 PM EDT [facility] Blood Venous blood specimen / Unknown Venipuncture / Unknown 02/13/2025 4:55 PM EDT 02/13/2025 5:29 PM EDT Harsh Ray MD LAB BLOOD ORDERABLES Final Result Performing Organization Address [facility]/ZIP Co de Phone Number [facility] [address] [place] [address], [place] [phone] * (ABNORMAL) Comprehensive metabolic panel (02/13/2025 4:55 PM EDT) Only the most recent of2 resultswithin the time period is included. Sodium 140 133 - 145 mmol/L LAB CHEMISTRY METHOD 02/13/2025 6:03 PM EDT [facility] Potassium 3.7 3.5 - 5.5 mmol/L LAB CHEMISTRY METHOD 02/13/2025 6:03 PM EDT [facility] Chloride 107 96 - 110 mmol/L LAB CHEMISTRY METHOD 02/13/2025 6:03 PM EDT [facility] CO2 28 21 - 32 mmol/L LAB CHEMISTRY METHOD 02/13/2025 6:03 PM EDT [facility] Anion Gap 5 3 - 11 LAB CHEMISTRY METHOD 02/13/2025 6:03 PM [facility] Glucose 137(H) 70 - 100 mg/dL LAB CHEMISTRY METHOD 02/13/2025 6:03 PM [facility] BUN 25 5 - 25 mg/dL LAB CHEMISTRY METHOD 02/13/2025 6:03 PM [facility] Creatinine 0.75 0.50 - 1.10 mg/dL LAB CHEMISTRY METHOD 02/13/2025 6:03 PM [facility] eGFR 83 >=60 mL/min/1. 73m2 LAB CHEMISTRY METHOD 02/13/2025 6:03 PM [facility] Comment:Calculation based on the Chronic Kidney Disease Epidemiology Collaboration (CKD-EPI) equation refit without adjustment for race. BUN/Creatinine Ratio 33.3 LAB CHEMISTRY METHOD 02/13/2025 6:03 PM [facility] Calcium 9.3 8.5 - 10.5 mg/dL LAB CHEMISTRY METHOD 02/13/2025 6:03 PM [facility] AST (SGOT) 27 10 - 42 unit/L LAB CHEMISTRY METHOD 02/13/2025 6:03 PM [facility] ALT (SGPT) 35 10 - 60 unit/L LAB CHEMISTRY METHOD 02/13/2025 6:03 PM [facility] Alkaline Phosphatase 142(H) 42 - 121 unit/L LAB CHEMISTRY METHOD 02/13/2025 6:03 PM [facility] Total Protein 7.2 6.0 - 8.0 g/dL LAB CHEMISTRY METHOD 02/13/2025 6:03 PM [facility] Albumin 3.9 3.2 - 5.0 g/dL LAB CHEMISTRY METHOD 02/13/2025 6:03 PM [facility] Total Bilirubin 0.5 0.0 - 1.4 mg/dL LAB CHEMISTRY METHOD 02/13/2025 6:03 PM [facility] Blood Venous blood specimen / Unknown Venipuncture / Unknown 02/13/2025 4:55 PM EDT 02/13/2025 5:29 PM EDT us Harsh Ray MD LAB BLOOD ORDERABLES Final Result [facility] [address] [place] [address], [place] [phone] * External Ultrasound Report (02/10/2025) Anatomical Region Laterality Modality Ultrasound us Provider [facility] US PROCEDURES Final Result * External clinical lab (02/10/2025) us Provider [facility] BLOOD ORDERABLES Fin al Result * LEOBARDO SCREENING DIGITAL (01/03/2023 10:44 AM EDT) Anatomical Region Laterality Modality Mammography 01/03/2023 10:0 3 AM EDT Narrative 01/03/2023 10:44 AM EDT [facility] Diagnostic Imaging Department [address] [place] [address] Patient: GINGER HARRIS /Age/Sex: 1950 - 72 - F Unit#: [id number] Location/Status: SPDIMAM/REG CLI Mnemonic/Ordering Site: DIGSC/SPMAM Ordering Physician: CLIF OLSON MD Leobardo Screening Digital - 01/03/23 - 1029 Report Status:Signed HISTORY: The patient is a 72-year-old female presenting for routine screening mammography. The patient has a family history of breast cancer involving her mother at age 60, as well as a sister at age 60. FINDINGS: Full-field digital mammography of the breasts bilaterally consisting of tomosynthesis in MLO and CC projection is performed in the [employer] 2000-D unit. Computer aided detection utilizing the Impact Engine system was utilized. The breasts are again [...] Benign Finding PQRI CPT II 3342F Code 12588, 46724 PQRI 225 CPT II 7025F Dictating Physician: RADHA ANNE MD Electronically Signed by: RADHA ANNE MD Dic Date/Time: 01/03/23 1036 Sign date/Time: 01/03/23 1044 Procedure Note Radha Anne MD - 07/11/2023 [facility] Diagnostic Imaging Department [address] [place] [id number] Patient: GINGER HARRIS/Age/Sex: 1950 - 72 - F Unit#: [id number] Location/Status: SPDIMAM/REG CLI Mnemonic/Ordering Site: [facility] Ordering Physician: CLIF OLSON MD Leobardo Screening Digital - 01/03/23 - 1029 Report Status:Signed HISTORY: The patient is a 72-year-old female presenting for routinescreening mammography. The patient has a family history of breast cancer involvingher mother at age 60, as well as a sister at age 60. FINDINGS: Full-field digital mammography of the breasts bilaterallyconsisting of tomosynthesis in MLO and CC projection is performed in the [employer] 2000-D unit. Computer aided detection utilizing the [...] Benign Finding PQRI CPT II 3342F Code 10528, 61374 PQRI 225 CPT II 7025F Dictating Physician: RADHA ANNE MD Electronically Signed by: RADHA ANNE MD Dic Date/Time: 01/03/23 1036 Sign date/Time: 01/03/23 1044 [facility] Thuan Olson MD IMG BI PROCEDURES Final [...] (World Health Organization Fracture Risk Assessment) The [facility] Department of Internal Medicine recommends using National [...] alternative screening schedule based on irene Guallpa., [facility] June 23, 2011 for patients with osteopenia [...] (World Health Organization Fracture Risk Assessment) The [facility] Department of Internal Medicine recommendsusing National Osteoporosis [...] Final Result * Hepatitis C Screening (04/18/2022) Hepatitis C Screening Abstracted Historical Provider HEALTH MAINTENANCE Final Result * Colonoscopy (07/02/2010) Colonoscopy Abstracted, No Interpretation Anatomical Region Laterality Modality Other Historical Provider HEALTH MAINTENANCE Final Result from Last 3 Months or Most Recently Relevant to Health Maintenance Insurance [employer] MEDICARE Care Teams Clerk Entry Level Relationship Specialty Start Date End Date Magali Olson MD [address] [place] [id number] PCP - General 02/27/02
--- OUTSIDE RECORDS SUMMARY | 2025-04-10 14:04 | XMS_ITS | Clinical Summary ---
Author Organization [facility] Address [address] [facility] [address] [place] [phone] Phone Care Team Providers Care Field Cane Scale Clerk Name Role Phone Amador Roberts MD Primary [...] DEPRESSION SCREENING 1961 HEPATITIS C SCREENING 1967 ZOSTER VACCINES (1 of 2) 1999 OSTEOPOROSIS SCREENING INITIAL (ONE-TIME) 2014 RSV VACCINE (1 - 1-dose 75+ series) 2024 INFLUENZA VACCINE (#1) 2025 0, 02/07/2019, 02/14/2018, Additional history exists COVID-19 VACCINE ( - 2024- season) 2025 08/05/2020 Adult Td,Tdap [...] this topic Medical Devices Implanted Type Area Photographic Plate Maker Device Identifier Shelf Expiration Date Model / Serial / Lot Iol Softport Ao [id number] 21.5d-01/02/2018 Implanted:01/03/20 18 (Quantity not on file) MEDLINE 05/04/2022 Description:OD Lens Intraocular Sofport Li61ao 23.0d-06/19/2018 Implanted:06/19/19 19 (Quantity not on file) [employer] 12/02/2022 [id number] 23.0D / / Description:OS Insurance MEDICARE PART A & B Member Subscriber Plan / Payer ( fective 2018-) Name:Jacqueline Harrisnna Relation to Subscriber:Self Name:Jacqueline Harrisnna Payer ID:[id number] ([facility]) Type:Indemnity Address: [place] [address] MEDICARE PART A & B Member Subscriber Plan / Payer ( fective 2018-Present) Name:Jacqueline Harrisnna Relation to Subscriber:Self Name:Ginger Harris Payer ID:[id number] ([employer]) Type:Indemnity Address: [facility] [id number] [place] [id number] Care Teams Field Cane Scale Clerk Relationship Specialty Start Date End Date Amador Roberts MD [address] [place] [id number] PCP - General Internal Medicine 08/21/17 Additional Source Comments The information contained in this document represents components of the legal health record. It is not the complete legal health record.[facility]
== END 2025-04-10 12:27 | disposition home or self-care (01) ==
LOC: HO.HUSH 11:17
PROVIDERS: PCP Pediatrics; Visit Provider Urology
DX: Z13.9 Encounter for screening, unspecified (principal)

== ENCOUNTER → 2025-04-10 11:16 | Outpatient (BNVA) | payer MEDICARE, SELFPAY | PROVIDERS: PCP Pediatrics; Visit Provider Urology | DX: N20.0 Calculus of kidney (principal); R39.9 Unspecified symptoms and signs involving the genitourinary system; Z13.9 Encounter for screening, unspecified | CPT/HCPCS: 81003; 99212 ==